=== PATIENT | female | born 1985 ===

== ENCOUNTER → 2020-06-20 12:47 | Outpatient (BNVA) | payer MEDICAID, SELFPAY | PROVIDERS: PCP Student in an Organized Health Care Education/Training Program; Visit Provider Internal Medicine Gastroenterology ==

== ENCOUNTER → 2020-09-22 10:01 | Outpatient (BNVA) | payer MEDICAID, SELFPAY | PROVIDERS: PCP Student in an Organized Health Care Education/Training Program; Visit Provider Internal Medicine Gastroenterology ==

== ENCOUNTER 2020-11-30 09:08 | Outpatient (REF) | payer MEDICAID, SELFPAY ==
--- NOTE | ~2020-11-30 | CT_ITS ---
EXAMINATION: CT SOFT TISSUE NECK WITH CONTRAST CLINICAL INFORMATION: Right-sided hardness and swelling. COMPARISON: None TECHNIQUE: Following the intravenous administration of 100 mL of Omnipaque 350 intravenous contrast, helical imaging was performed in the axial plane with generation of coronal and sagittal reformatted images. This CT examination was performed using dose optimization techniques as appropriate, variously including the following: *Automated exposure control *Adjustment of mA and/or kV according to patient size (this includes techniques or standardized protocols for targeted exams where dose is matched to indication/reason for exam; i.e. extremities or head) *Use of iterative reconstruction technique DLP: 272 mGy-cm FINDINGS: There is bilateral anterior neck lymphadenopathy. The largest right level 2 lymph node measures 2.1 x 1.6 cm. The largest left level 2 neck lymph node measures 1.6 x 1.3 cm. The parotid glands are homogeneous in attenuation. The submandibular glands are normal. There is moderate enlargement of adenoids and bilateral palatine tonsils. This results in complete narrowing of pharyngeal airway. The oral cavity is limited evaluation secondary to dental amalgam related artifacts. The laryngeal structures are normal. The parapharyngeal fat is preserved. The carotid sheath vasculature opacify normally. No extra mucosal soft tissue mass or fluid collection is seen. No retropharyngeal fluid collection is seen. The thyroid gland is normal. The superior mediastinum is unremarkable. The lung apices are clear. Incidental augmented right breast is noted. The mastoid air cells and visualized portions of the paranasal sinuses are well-aerated. The temporomandibular joints are normal. No periapical disease is identified. No osseous abnormalities are seen. The imaged portions of the brain parenchyma are unremarkable. CT/CT soft tissue neck w con IMPRESSION: Significantly enlarged adenoids and palatine tonsils resulting in significant narrowing of the thyroid gland. Bilateral abnormal cervical adenopathy.
[2020-11-30] MEDS: iohexoL 350 MG/ML 100 ML INFUS..BTL 60 ML IV (10:22)
== END 2020-11-30 09:09 | disposition home or self-care (01) ==
LOC: HO.CT 09:08
PROVIDERS: PCP Student in an Organized Health Care Education/Training Program; Referring Provider Student in an Organized Health Care Education/Training Program; Visit Provider Emergency Medicine
DX: J02.9 Acute pharyngitis, unspecified (principal); R22.1 Localized swelling, mass and lump, neck
CPT/HCPCS: 70491; Q9967

== ENCOUNTER → 2021-05-11 10:25 | Outpatient (BNVA) | payer MEDICAID, SELFPAY | PROVIDERS: PCP Student in an Organized Health Care Education/Training Program; Visit Provider Internal Medicine Gastroenterology | DX: Z13.89 Encounter for screening for other disorder (principal) | CPT/HCPCS: 99212 ==

== ENCOUNTER 2021-07-24 10:14 | Day surgery (SDC) | payer MEDICAID, SELFPAY ==
[2021-07-19 10:40] VITALS: BMI 28.3
[2021-07-24 10:34] LABS: UPreg QC Valid YES
[2021-07-24 10:35] LABS: Urine Pregnancy NEGATIVE (NEGATIVE)
[2021-07-24 10:51] VITALS: BMI 28.3
[2021-07-24 11:04] VITALS: BP 109/53; PULSE 58; RESP 16; TEMP 36.8; O2SAT 99
--- NOTE | 2021-07-24 11:24 | MHC.SHP ---
Pre-Procedural Eval Section A Date of Service: 07/24/21 The patient is an INPATIENT: No The History & Physical has been completed within 30 days and I have reviewed it.: No Section B Chief Complaint: GERD, abdominal pain Details of Present Illness: GERD, abdominal pain Relevant Family History (Specify if Yes): No Relevant Social History: Tobacco Use Present Medications: see Short Stay Collaborative assessment Medical History: Significant History (History of Helicobacter pylori infection) History of Previous Operations: Relevant previous surgery/procedure and date(s) (History of esophagogastroduodenoscopy (~11/2011) History of esophagogastroduodenoscopy (~10/2017) Hx laparoscopic cholecystectomy (~01/2018) Status post [place] teeth removed) Allergies: Allergies Allergy/AdvReac Type Severity Reaction Status Date / Time No Known Allergies Allergy Verified 05/11/21 10:27 [No Known Allergies*] Review of Systems Sugical H&P ROS: Negative: Constitution, Cardiovascular and Respiratory and Yes, Specify: Gastrointestinal (GERD, abdominal pain) Exam Surgical H&P Exam: Normal: Heart, Normal: Lungs and Normal: Abdomen Plan Diagnosis/Plan: Unchanged I have reviewed the history and physical and performed a pertinent physical examination on my patient. No changes have occurred unless specified.
--- NOTE | 2021-07-24 11:25 | PM.OP ---
Brief Operative Note Date of Service: 07/24/21 Pre-op diagnosis: GERD, upper abdominal pain Post-op diagnosis: other (GERD, gastritis) Procedure: FLEXIBLE TRANSORAL UPPER GASTROINTESTINAL ENDOSCOPY WITH BIOPSIES Consent: Indications for the procedure and potential complications of bleeding, perforation, reaction to medications and missed diagnosis were discussed with the patient with the help of a Malay foreign language instructor and informed consent was obtained. Instrument: Olympus GIF H 190 mid size upper endoscope Monitoring: Vital signs and clinical assessment, continuous EKG monitoring, Pulse oximetry, Carbon Dioxide monitoring and blood pressure monitoring were done throughout the procedure. Procedure: The patient was placed in the left lateral decubitis position and pre-procedure medications were administered and a bite block was placed. The endoscope was inserted into the mouth and advanced under direct vision to the third part of duodenum. A careful inspection was made as the upper endoscope was withdrawn including a retroflexed examination of the proximal stomach; Findings and interventions are described below. Findings: Larynx: Edema of arytenoid cartilages suggestive of LPRD Esophagus: GE junction at 35 cms. No esophagitis or Mckenzie's. Stomach: Mild diffuse gastric erythema. Biopsies were obtained from the antrum and body of the stomach. Grade 2 flap valve on retroflexed examination of the cardia. Duodenum: Normal bulb and descending duodenum. Biopsies were obtained from 3rd part of the duodenum to check for celiac sprue Intervention: Biopsies as noted above Impression and Post Procedure Diagnosis: Endoscopy Findings: LARYNX: Edema of arytenoid cartilages suggestive of LPRD ESOPHAGUS: Normal STOMACH: Mild diffuse gastric erythema. Biopsies were obtained from the antrum and body of the stomach. DUODENUM: Normal - biopsied to check for celiac sprue Plan: Await pathology results Patient has an appointment on 10/05/21 in the GI Clinic with Juan Tan M.D.. Above findings were reviewed with the patient and GERD and Diet for Gastritis handouts were given in the discharge area Surgeon: Juan Tan MD Anesthesia: MAC (Dr Guerrero) Was an Meteorology Faculty Member used for this Procedure?: Yes Meteorology Faculty Member: Capri Dawn Estimated blood loss (mL): 0 Pathology: other (A. small bowel bxs, R/O celiac B. gastric antrum bxs, R/O H. pylori C. gastric body bxs) Condition: stable Disposition: PACU
--- NOTE | 2021-07-24 11:26 | P.OP_ITS ---
Operative Note Operative Note Date of Service: 07/24/21 Narrative: Pre-op diagnosis: GERD, upper abdominal pain Post-op diagnosis:?other (GERD, gastritis) Procedure: FLEXIBLE TRANSORAL UPPER GASTROINTESTINAL ENDOSCOPY WITH BIOPSIES Consent:?Indications for the procedure and potential complications of bleeding, perforation, reaction to medications and missed diagnosis were discussed with the patient with the help of a Turkmen medical language specialist and informed consent was obtained. Instrument:?Olympus GIF H 190 mid size upper endoscope Monitoring: Vital signs and clinical assessment, continuous EKG monitoring, Pulse oximetry, Carbon Dioxide monitoring and blood pressure monitoring were done throughout the procedure. Procedure:?The patient was placed in the left lateral decubitis position and pre-procedure medications were administered and a bite block was placed. The endoscope was inserted into the mouth and advanced under direct vision to the third part of duodenum. A careful inspection was made as the upper endoscope was withdrawn including a retroflexed examination of the proximal stomach; Findings and interventions are described below. Findings: Larynx:? Edema of arytenoid cartilages suggestive of LPRD Esophagus: GE junction at 35 cms. No esophagitis or Mckenzie's. Stomach: Mild diffuse gastric erythema. Biopsies were obtained from the antrum and body of the stomach. Grade 2 flap valve on retroflexed examination of the cardia. Duodenum: Normal bulb and descending duodenum.? Biopsies were obtained from 3rd part of the duodenum to check for celiac sprue Intervention: Biopsies as noted above Impression and Post Procedure Diagnosis: Endoscopy Findings: LARYNX: Edema of arytenoid cartilages suggestive of LPRD ESOPHAGUS: Normal STOMACH: Mild diffuse gastric erythema. Biopsies were obtained from the antrum and body of the stomach. DUODENUM: Normal - biopsied to check for celiac sprue Plan: Await pathology results Patient has an appointment on 10/05/21 in the GI Clinic with Juan Tan M.D. Above findings were reviewed with the patient and GERD and Diet for Gastritis handouts were given in the discharge area ADDENDUM: Biopsies showed: A.? Small bowel, biopsy:? Small bowel mucosa within normal limits; preserved villous architecture and no increased intraepithelial lymphocytes seen.? B.? Stomach, antrum, biopsy:? Gastric antral mucosa within normal limits; negative for Helicobacter pylori, intestinal metaplasia and dysplasia.? C.? Stomach, body, biopsy:? Gastric body mucosa within normal limits; negative for Helicobacter pylori, intestinal metaplasia and dysplasia. Surgeon: Juan Tan MD Anesthesia:?MAC (Dr Guerrero) Was an Sponge Fisherman used for this Procedure?:?Yes Sponge Fisherman:?Capri Dawn Estimated blood loss (mL):?0 Pathology:?other (A. small bowel bxs, R/O celiac? B. gastric antrum bxs, R/O H. pylori? C. gastric body bxs) Condition:?stable Disposition:?PACU
[2021-07-24 11:41] VITALS: BP 87/45; PULSE 86; RESP 16; TEMP 36.4; O2SAT 98
[2021-07-24 11:56] VITALS: BP 88/51; PULSE 55; RESP 18; O2SAT 100
[2021-07-24 12:12] VITALS: BP 104/60; PULSE 69; RESP 16; TEMP 36.4; O2SAT 100
[2021-07-24 12:22] VITALS: BP 102/52; PULSE 60; RESP 16; TEMP 36.4; O2SAT 100
== END 2021-07-24 13:40 | disposition home or self-care (01) ==
PROVIDERS: Anesthesiology; PCP Student in an Organized Health Care Education/Training Program; Visit Provider Internal Medicine Gastroenterology
PROC: 0DJ08ZZ Inspection of Upper Intestinal Tract, Via Natural or Artificial Opening Endoscopic (ICD-10-PCS; CPT 43235; principal; 2021-07-24 11:40)
DX: K21.9 Gastro-esophageal reflux disease without esophagitis (principal); K29.70 Gastritis, unspecified, without bleeding; E55.9 Vitamin D deficiency, unspecified; Z87.19 Personal history of other diseases of the digestive system; Z79.899 Other long term (current) drug therapy; Z90.49 Acquired absence of other specified parts of digestive tract
CPT/HCPCS: 43239; 81025; 88305; 88342

== ENCOUNTER → 2021-10-05 08:10 | Outpatient (BNVA) | payer MEDICAID, SELFPAY | PROVIDERS: PCP Student in an Organized Health Care Education/Training Program; Visit Provider Internal Medicine Gastroenterology | DX: K21.9 Gastro-esophageal reflux disease without esophagitis (principal); R10.13 Epigastric pain; E55.9 Vitamin D deficiency, unspecified; D13.5 Benign neoplasm of extrahepatic bile ducts; R10.9 Unspecified abdominal pain; G89.29 Other chronic pain | CPT/HCPCS: 99212 ==

== ENCOUNTER 2022-01-18 13:55 | Outpatient (REF) | payer MEDICAID, SELFPAY ==
[2022-01-18 14:11] LABS: MANUAL DIFF FLAG NO
[2022-01-18 15:09] LABS: Basophils Absolute Auto 0.1 X10*3/uL (0.0-0.2); Basophils Percent Auto 0.5 % (0-2); Eosinophils Absolute Auto 0.1 X10*3/uL (0.0-0.4); Eosinophils Percent Auto 0.7 % (0-4); Hematocrit 42.5 % (37.0-47.0); Hemoglobin 14.2 g/dl (12.0-16.0); Imm Gran Abs Auto 0.04 X10*3/uL (0.00-0.03); Imm Gran Pct Auto 0.4 % (0.0-0.4); Lymphocytes Absolute Auto 2.9 X10*3/uL (1.2-4.9); Lymphocytes Percent Auto 26.2 % (20-40); Mean Corpuscular HGB Conc 33.4 g/dl (31.0-35.0); Mean Corpuscular Hemoglobin 27.8 pg (27.0-33.0); Mean Corpuscular Volume 83.3 fL (80.0-98.0); Mean Platelet Volume 11.3 fL (9.4-12.3); Monocytes Absolute Auto 0.5 X10*3/uL (0.1-1.2); Monocytes Percent Auto 4.9 % (2-11); Neutrophils Absolute Auto 7.4 x10*3/uL (2.0-8.3); Neutrophils Percent Auto 67.3 % (45-73); Platelet Count 267 X10*3/uL (160-400); Red Cell Distribution Width 13.1 % (11.0-16.0)
[2022-01-18 15:41] LABS: Alanine Aminotransferase 11 U/L (0-31); Albumin Level 4.3 g/dL (3.5-5.0); Alkaline Phosphatase 56 U/L (39-117); Anion Gap 17 (12-20); Aspartate Amino Transferase 14 U/L (5-31); Bilirubin Total 0.3 mg/dL (0.0-1.0); Blood Urea Nitrogen 11 mg/dL (9-16); Calcium 9.6 mg/dL (8.4-10.2); Carbon Dioxide 25 mmol/L (22-29); Chloride 105 mmol/L (96-108); Estimated Glomerular Filt Rate > 60; Glucose Random 80 mg/dL (60-115); Lipase 33 U/L (8-78); Potassium 4.5 mmol/L (3.3-5.1); Sodium 142 mmol/L (135-145); Total Protein 7.2 g/dL (6.5-8.0)
[2022-01-18 16:00] LABS: Vitamin D 25-OH Total 26.8 ng/mL (>30)
[2022-01-18 16:11] LABS: Folate 9.1 ng/mL (> or = 4.0); Vitamin B12 445 pg/mL (200-900)
== END 2022-01-18 13:56 | disposition home or self-care (01) ==
LOC: HO.LAB 13:55
PROVIDERS: PCP Student in an Organized Health Care Education/Training Program; Visit Provider Internal Medicine Gastroenterology
DX: R10.9 Unspecified abdominal pain (principal); G89.29 Other chronic pain; K21.9 Gastro-esophageal reflux disease without esophagitis; R10.13 Epigastric pain; D13.5 Benign neoplasm of extrahepatic bile ducts
CPT/HCPCS: 36415; 80053; 82306; 82607; 82746; 83690; 85025; 99212

== ENCOUNTER 2022-01-31 07:32 | Outpatient (REF) | payer MEDICAID, SELFPAY ==
--- NOTE | ~2022-01-31 | CT_ITS ---
EXAMINATION: CT ABDOMEN AND PELVIS WITH CONTRAST CLINICAL INFORMATION: Abdominal pain. COMPARISON: Ultrasound abdomen 12/10/2017. TECHNIQUE: Multidetector volumetric images were obtained from the superior aspect of the liver through the pubic symphysis following administration 85 mL of Omnipaque 350 intravenous contrast. Sagittal and coronal reformatted images were obtained on the technologist's workstation. Oral contrast: No This CT examination was performed using dose optimization techniques as appropriate, variously including the following: *Automated exposure control *Adjustment of mA and/or kV according to patient size (this includes techniques or standardized protocols for targeted exams where dose is matched to indication/reason for exam; i.e. extremities or head) *Use of iterative reconstruction technique DLP: 390 mGy-cm FINDINGS: LUNG BASES: The lung bases are clear. Heart size is normal. LIVER, GALLBLADDER, AND BILIARY TREE: The liver is normal in size, shape, and attenuation. No focal hepatic lesion or biliary ductal dilatation is present. The gallbladder has been surgically removed. PANCREAS: Unremarkable. SPLEEN: Unremarkable. ADRENAL GLANDS: Unremarkable. KIDNEYS AND URETERS: The kidneys are normal size, lobulated shape, and attenuation. No hydronephrosis, hydroureter, or calculi seen. No perinephric stranding. BLADDER: Unremarkable. GASTROINTESTINAL TRACT: There is scattered stool and gas seen throughout the colon without significant distention. The small bowel loops are normal caliber. ABDOMINAL WALL: No significant hernia is appreciated. LYMPH NODES: Normal. VASCULAR: Unremarkable. PELVIC VISCERA: The uterus is anteverted and appears unremarkable. No adnexal mass or free fluid seen. OSSEOUS STRUCTURES: Unremarkable. CT/CT abdomen pelvis w IV con IMPRESSION: No acute intra-abdominal process seen. Mild constipation. Fleischner guidelines were followed.
[2022-01-31] MEDS: Barium Sulfate Oral (Vanilla) 450 ML ORAL.SUSP 900 ML PO (09:49)
[2022-01-31] MEDS: iohexoL 350 MG/ML 100 ML INFUS..BTL IV (09:50)
== END 2022-01-31 07:33 | disposition home or self-care (01) ==
LOC: HO.CT 07:32
PROVIDERS: PCP Student in an Organized Health Care Education/Training Program; Visit Provider Internal Medicine Gastroenterology
DX: R10.9 Unspecified abdominal pain (principal); G89.29 Other chronic pain
CPT/HCPCS: 74177; Q9967

== ENCOUNTER → 2022-05-17 08:17 | Outpatient (BNVA) | payer MEDICAID, SELFPAY | PROVIDERS: PCP Student in an Organized Health Care Education/Training Program; Visit Provider Internal Medicine Gastroenterology | DX: Z13.89 Encounter for screening for other disorder (principal) ==

== ENCOUNTER 2022-05-31 14:01 | Outpatient (REF) | payer MEDICAID, SELFPAY ==
--- NOTE | 2022-05-31 09:15 | EMG_ITS ---
Bilateral median and ulnar motor and sensory studies were performed. Bilateral radial, medial, and lateral, antecubital sensory studies were performed and paraspinal muscles were tested with a needle. IMPRESSION: This study was unremarkable, not revealing any sign of entrapment neuropathy, radiculopathy or plexopathy. MD LINDA Meyer/ROSETTE / [id number]
== END 2022-05-31 14:02 | disposition home or self-care (01) ==
LOC: HO.NEURO 14:01
PROVIDERS: PCP Student in an Organized Health Care Education/Training Program; Visit Provider Student in an Organized Health Care Education/Training Program
DX: G56.03 Carpal tunnel syndrome, bilateral upper limbs (principal)
CPT/HCPCS: 95886; 95913

== ENCOUNTER → 2022-10-02 10:29 | Outpatient (BNVA) | payer MEDICAID, SELFPAY | PROVIDERS: PCP Student in an Organized Health Care Education/Training Program; Referring Provider Student in an Organized Health Care Education/Training Program; Visit Provider Internal Medicine Gastroenterology | DX: K59.09 Other constipation (principal); K21.9 Gastro-esophageal reflux disease without esophagitis; R10.9 Unspecified abdominal pain; R10.13 Epigastric pain; D13.5 Benign neoplasm of extrahepatic bile ducts; G89.29 Other chronic pain | CPT/HCPCS: 99212 ==

== ENCOUNTER 2023-04-04 10:31 | Outpatient (AMB) | payer MEDICAID, SELFPAY ==
--- NOTE | 2023-04-04 10:36 | A.OFFVIS_ITS ---
Intake Vital Signs 04/04/23 10:38 Height 5 ft 1 in Weight 158 lb BMI 29.9 BP 84/58 L Blood Pressure Location Lt brachial Position Sitting Pulse 72 Intake Visit Reasons: 6 month follow up Intake Note: Patient follow up for adenomyomatosis of gallbladder. Patient cc: acid reflex come and go. Denies any other GI issues. Cotton Classer Required: No Accompanied by: Self / Same As Patient Allergies No Known Allergies [No Known Allergies*] Allergy (Verified 04/04/23 10:35) Medication List - Last Reconciled 04/04/23 by Juan Tan MD cholecalciferol (vitamin D3) 250 mcg PO QWEEK 90 days ibuprofen 800 mg PO TID naproxen 250 mg PO BID PRN omeprazole 20 mg PO BID 60 days sennosides (senna) 8.6 mg PO BEDTIME 30 days sucralfate (Carafate) 10 mL PO BID 30 days HPI 6 month follow up HPI Details GI VISIT FOR THIS 37-YEAR-OLD UKRAINIAN-SPEAKING FEMALE FOR FOLLOW-UP OF GERD AND EPIGASTRIC PAIN Patient is status post cholecystectomy in 2018 ? ?? CHRONIC ILLNESSES:?H pylori 11/2011; Neg Ag 08/2015, INSOMNIA, VITAMIN-D DEFICIENCY, SMOKER IMAGING STUDIES: 02/[address] SHOWED: GASTROINTESTINAL TRACT: There is scattered stool and gas seen throughout the colon without significant distention. The small bowel loops are normal caliber.? PELVIC VISCERA: The uterus is anteverted and appears unremarkable. No adnexal mass or free fluid seen. IMPRESSION: No acute intra-abdominal process seen. Mild constipation. ? 12/04 ABDOMINAL ULTRASOUND SHOWED: Ring down artifact from the gallbladder wall suggestive of adenomyomatosis of the gallbladder wall. Otherwise unremarkable exam. Patient is status post cholecystectomy in 2018 ? ENDOSCOPIC STUDIES: 07/24/21 EGD SHOWED: LARYNX: Edema of arytenoid cartilages suggestive of LPRD ESOPHAGUS: Normal STOMACH: Mild diffuse gastric erythema. Biopsies were obtained from the antrum and body of the stomach. DUODENUM: Normal - biopsied to check for celiac sprue Plan:? Above findings were reviewed with the patient and GERD and Diet for Gastritis handouts were given in the discharge area BIOPSIES SHOWED: A.? Small bowel, biopsy:? Small bowel mucosa within normal limits; preserved villous architecture and no increased intraepithelial lymphocytes seen.? B.? Stomach, antrum, biopsy:? Gastric antral mucosa within normal limits; negative for Helicobacter pylori, intestinal metaplasia and dysplasia.? C.? Stomach, body, biopsy:? Gastric body mucosa within normal limits; negative for Helicobacter pylori, intestinal metaplasia and dysplasia. EGD on 11/04/17 showed: ? Larynx: Edema of arytenoid cartilages ? Esophagus: Minimal esophagitis at GE junction. Biopsies obtained from the proximal esophagus. ? Stomach: Mild diffuse erythema involving the entire stomach - antral biopsies obtained ? Duodenum: Normal. ? Biopsies: ? A. UNREMARKABLE GASTRIC ANTRAL-TYPE MUCOSA. AN IMMUNOSTAIN FOR HELICOBACTER PYLORI IS NEGATIVE. ? B. UNREMARKABLE ESOPHAGEAL SQUAMOUS MUCOSA. THERE IS NO EVIDENCE OF EOSINOPHILIC ESOPHAGITIS ?TODAY'S VISIT ? Pt elected to proceed with the visit without an iron miner blasting since she does not have any GI concerns today Heartburn well controlled with Omeprazole with occasional breakthrough symptoms associated with diet Abd pain resolved since GB surgery Denies constipation Having Thanksgiving at her home Dad and brother are planning to visit from [place] over Xmas PAST VISIT: I do not have any concerns ? Taking Omeprazole 20 mg twice a day and Carafate 2-3 times daily with meals. ? Heartburn is well controlled with above medications ? Takes Naproxen intermittently for CTS - 1-2 times a week Abd CT scan results reviewed. ? Has noted constipation recently and has a BM every 3 to 4 days ? Continues to have upper abdominal pain in her stomach with burning sensation. ? from time to time and medication has helped a lot. ? Denies dysphagia. ? Medications are helping with her GERD. Denies any other GI symptoms. ? Doing good and heartburn is better. ? Scheduled for a 2nd dose of COVID vaccine next week. ? Patient was prescribed pantoprazole after a previous visit, she notes better relief of symptoms with omeprazole and was switched back to Omeprazole. ? She was started on Famotidine and does not notice any change in heartburn. ? Has been taking Omeprazole for the past several yrs. ? Does not recall taking Pantoprazole in the past. ? Had a physical with her PCP and had lab tests done which were normal. ? Has constant heartburn which does not go away. ?Taking Omeprazole twice daily which is helpful. ? Has been taking Carafate which has not been very helpful ? Sometimes the medication helps and sometimes it does not. ? Notes pain in the pit of her stomach. ? Unable to identify any precipitating factors. ? Can have abdominal pain before eating. ? Symptoms are worse at night. ? Appetite is good and denies any change in weight. ? Takes Omperazole twice a day after meals - one in the morning and once at night - advised to take 20 to 30 min before meals. Also take Carafate twice a day. ? Has dinner at 5 pm and goes to sleep at 10 pm. Sleeps almost upright with several pillows and can still have nocturnal regurgitation. ? She usually notes Epigastric pain an hour after eating. Pain improves with taking Maalox. Notes intermittent nausea with abdominal pain and denies chest pain, dysphagia bloating, gas, constipation or?diarrhea. She takes ETOH occasionally and stopped drinking sodas. ? Weight has been?stale [facility] Medical History COVID-19 vaccine series completed Helicobacter pylori infection (~11/2011) Surgical History Hx laparoscopic cholecystectomy (~01/2018) Status post [place] teeth removed History of esophagogastroduodenoscopy (~11/2011) Family History Mother HTN (hypertension) Social History Household Members: None Alcohol intake: current Alcohol intake frequency: holidays/special occasions only Patient Tobacco Use Status: Tobacco use Unknown Review of Systems Const All systems reviewed & are unremarkable except as noted in HPI and below Physical Exam Const General: healthy appearing and no acute distress Nutritional Appearance: overweight Orientation/consciousness: patient oriented x3 Limitations: no limitations HEENT Head: Yes normal to inspection Ears: hearing grossly normal bilaterally Eyes Sclerae: sclerae normal Pupils: Equal, round and reactive pupils present Neck Neck: Yes normal visual inspection Chest Chest palpation & inspection: normal inspection of the chest Resp Effort & Inspection: normal respiratory effort Auscultation: clear to auscultation bilaterally Cardio Palpation: normal PMI Rate: regular rate Rhythm: regular rhythm Heart sounds: S1 normal heart sound present, S2 normal heart sound present and no murmurs GI Palpation (GI): Soft to palpation, nontender and No hepatosplenomegaly present Auscultation: normal bowel sounds Rectal Exam - Female: deferred Skin General skin exam: no rashes or lesions noted Neuro General: patient oriented x3, gait normal and moves all extremities Cranial nerves: Yes Equal, round and reactive pupils present Psych Appearance: grossly normal Mental Status: mental status grossly normal Assessment & Plan Assessment & Plan (1) Chronic constipation: Code(s): K59.09 - Other constipation (2) Chronic abdominal pain: Code(s): R10.9 - Unspecified abdominal pain; G89.29 - Other chronic pain (3) GERD (gastroesophageal reflux disease): Comment: Continue omeprazole twice daily and Carafate 2-3 times daily. Code(s): K21.9 - Gastro-esophageal reflux disease without esophagitis (4) Adenomyomatosis of gallbladder: Comment: status post cholecystectomy Code(s): D13.5 - Benign neoplasm of extrahepatic bile ducts Plan 37 year old Korean-speaking female with history of smoking and long standing symptoms with heartburn and nocturnal regurgitation every night. Her symptoms have improved since she increased dose of Omeprazole to 40 mg twice daily. Use of NSAIDS and smoking and recent weight gain are likely contributing to worsening GERD symptoms. 10/2017 EGD showed diffuse gastritis and minimal esophagitis at GE junction. Biopsies were negative for EOE and H Pylori. Patient was prescribed pantoprazole after her last visit, she noted better relief of symptoms with omeprazole and was switched back to Omeprazole. 07/2021 Repeat EGD was performed and results as noted above. 01/[address] scan was negative except for constipation. Pt was prescribed senna for constipation - takes prn 04/04/23 GERD symptoms are well controlled with medications To continue Omeprazole 20 mg twice daily and sucralfate prn . FU in 6 months Medications: Refilled cholecalciferol (vitamin D3) 250 mcg PO QWEEK 90 days 13 caps 1RF E55.9 - Vitamin D deficiency, unspecified Coding Level of Care Code Est Pt Level 4 (28549) Diagnoses Chronic constipation K59.09 Chronic abdominal pain R10.9; G89.29 GERD (gastroesophageal reflux disease) K21.9 Adenomyomatosis of gallbladder D13.5 Time Spent (min) 21
[2023-04-04 10:38] VITALS: BP 84/58; PULSE 72; BMI 29.9
== END 2023-04-04 10:57 | disposition home or self-care (01) ==
PROVIDERS: PCP Student in an Organized Health Care Education/Training Program; Visit Provider Internal Medicine Gastroenterology
DX: K59.09 Other constipation (principal); R10.9 Unspecified abdominal pain; G89.29 Other chronic pain; K21.9 Gastro-esophageal reflux disease without esophagitis; D13.5 Benign neoplasm of extrahepatic bile ducts
CPT/HCPCS: 99214

== ENCOUNTER → 2023-04-04 10:31 | Outpatient (BNVA) | payer MEDICAID, SELFPAY | PROVIDERS: Visit Provider Internal Medicine Gastroenterology | DX: K59.09 Other constipation (principal); K21.9 Gastro-esophageal reflux disease without esophagitis; R10.9 Unspecified abdominal pain; D13.5 Benign neoplasm of extrahepatic bile ducts; G89.29 Other chronic pain | CPT/HCPCS: 99212 ==

== ENCOUNTER 2023-10-21 13:11 | Outpatient (AMB) | payer MEDICAID, SELFPAY ==
[2023-10-21 13:15] VITALS: BP 94/47; PULSE 62; BMI 30.6
--- NOTE | 2023-10-21 13:15 | MHC.OFFVIS ---
Vital Signs 10/21/23 13:15 Height 5 ft 1 in Weight 162 lb BMI 30.6 BP 94/47 L Blood Pressure Location Lt brachial Position Sitting Pulse 62 Intake Visit Reasons: follow up Cellar Packer Required: No Accompanied by: Self / Same As Patient Allergies No Known Allergies [No Known Allergies*] Allergy (Verified 10/21/23 13:14) Medication List - Last Reconciled 10/21/23 by Juan Tan MD cholecalciferol (vitamin D3) 250 mcg PO QWEEK 90 days ibuprofen 800 mg PO TID naproxen 250 mg PO BID PRN omeprazole 20 mg PO BID 90 days sennosides (senna) 8.6 mg PO BEDTIME sucralfate (Carafate) 10 mL PO BID 30 days HPI HPI follow up: Details: GI VISIT FOR THIS 38-YEAR-OLD BENINESE-SPEAKING FEMALE FOR FOLLOW-UP OF GERD AND EPIGASTRIC PAIN Patient is status post cholecystectomy in 2018 ? ?? CHRONIC ILLNESSES:?H pylori 11/2011; Neg Ag 08/2015, INSOMNIA, VITAMIN-D DEFICIENCY, SMOKER IMAGING STUDIES: 02/[address] SHOWED: GASTROINTESTINAL TRACT: There is scattered stool and gas seen throughout the colon without significant distention. The small bowel loops are normal caliber.? PELVIC VISCERA: The uterus is anteverted and appears unremarkable. No adnexal mass or free fluid seen. IMPRESSION: No acute intra-abdominal process seen. Mild constipation. ? 12/04 ABDOMINAL ULTRASOUND SHOWED: Ring down artifact from the gallbladder wall suggestive of adenomyomatosis of the gallbladder wall. Otherwise unremarkable exam. Patient is status post cholecystectomy in 2018 ? ENDOSCOPIC STUDIES: 07/24/21 EGD SHOWED: LARYNX: Edema of arytenoid cartilages suggestive of LPRD ESOPHAGUS: Normal STOMACH: Mild diffuse gastric erythema. Biopsies were obtained from the antrum and body of the stomach. DUODENUM: Normal - biopsied to check for celiac sprue Plan:? Above findings were reviewed with the patient and GERD and Diet for Gastritis handouts were given in the discharge area BIOPSIES SHOWED: A.? Small bowel, biopsy:? Small bowel mucosa within normal limits; preserved villous architecture and no increased intraepithelial lymphocytes seen.? B.? Stomach, antrum, biopsy:? Gastric antral mucosa within normal limits; negative for Helicobacter pylori, intestinal metaplasia and dysplasia.? C.? Stomach, body, biopsy:? Gastric body mucosa within normal limits; negative for Helicobacter pylori, intestinal metaplasia and dysplasia. EGD on 11/04/17 showed: ? Larynx: Edema of arytenoid cartilages ? Esophagus: Minimal esophagitis at GE junction. Biopsies obtained from the proximal esophagus. ? Stomach: Mild diffuse erythema involving the entire stomach - antral biopsies obtained ? Duodenum: Normal. ? Biopsies: ? A. UNREMARKABLE GASTRIC ANTRAL-TYPE MUCOSA. AN IMMUNOSTAIN FOR HELICOBACTER PYLORI IS NEGATIVE. ? B. UNREMARKABLE ESOPHAGEAL SQUAMOUS MUCOSA. THERE IS NO EVIDENCE OF EOSINOPHILIC ESOPHAGITIS ?TODAY'S VISIT ? Pt elected to proceed with the visit without an space operations officer since she does not have any GI concerns today Heartburn well controlled with Omeprazole with occasional breakthrough symptoms associated with diet Abd pain resolved since GB surgery Denies constipation Having Thanksgiving at her home Dad and brother are planning to visit from [place] over Xmas PAST VISIT: Everything is the same Taking Omeprazole 20 mg twice a day and sometimes Carafate 2-3 times daily with meals. ? Heartburn is well controlled with above medications ? Takes Naproxen or Ibuprofen intermittently for CTS - 1-2 times a week PAST VISITS: Abd CT scan results reviewed. ? Has noted constipation recently and has a BM every 3 to 4 days ? Continues to have upper abdominal pain in her stomach with burning sensation. ? from time to time and medication has helped a lot. ? Denies dysphagia. ? Medications are helping with her GERD. Denies any other GI symptoms. ? Doing good and heartburn is better. ? Scheduled for a 2nd dose of COVID vaccine next week. ? Patient was prescribed pantoprazole after a previous visit, she notes better relief of symptoms with omeprazole and was switched back to Omeprazole. ? She was started on Famotidine and does not notice any change in heartburn. ? Has been taking Omeprazole for the past several yrs. ? Does not recall taking Pantoprazole in the past. ? Had a physical with her PCP and had lab tests done which were normal. ? Has constant heartburn which does not go away. ?Taking Omeprazole twice daily which is helpful. ? Has been taking Carafate which has not been very helpful ? Sometimes the medication helps and sometimes it does not. ? Notes pain in the pit of her stomach. ? Unable to identify any precipitating factors. ? Can have abdominal pain before eating. ? Symptoms are worse at night. ? Appetite is good and denies any change in weight. ? Takes Omperazole twice a day after meals - one in the morning and once at night - advised to take 20 to 30 min before meals. Also take Carafate twice a day. ? Has dinner at 5 pm and goes to sleep at 10 pm. Sleeps almost upright with several pillows and can still have nocturnal regurgitation. ? She usually notes Epigastric pain an hour after eating. Pain improves with taking Maalox. Notes intermittent nausea with abdominal pain and denies chest pain, dysphagia bloating, gas, constipation or?diarrhea. She takes ETOH occasionally and stopped drinking sodas. ? Weight has been?stable [facility] Medical History COVID-19 vaccine series completed Helicobacter pylori infection (~11/2011) Surgical History Hx laparoscopic cholecystectomy (~01/2018) Status post [employer] teeth removed History of esophagogastroduodenoscopy (~11/2011) Family History Mother HTN (hypertension) Social History Household Members: None Alcohol intake: current Alcohol intake frequency: holidays/special occasions only Patient Tobacco Use Status: Tobacco use Unknown Review of Systems Const All systems reviewed & are unremarkable except as noted in HPI and below Physical Exam Const General: healthy appearing and no acute distress Nutritional Appearance: overweight Orientation/consciousness: patient oriented x3 Limitations: no limitations HEENT Head: Yes normal to inspection Ears: hearing grossly normal bilaterally Eyes Sclerae: sclerae normal Pupils: Equal, round and reactive pupils present Neck Neck: Yes normal visual inspection Chest Chest palpation & inspection: normal inspection of the chest Resp Effort & Inspection: normal respiratory effort Auscultation: clear to auscultation bilaterally Cardio Palpation: normal PMI Rate: regular rate Rhythm: regular rhythm Heart sounds: S1 normal heart sound present, S2 normal heart sound present and no murmurs GI Palpation (GI): Soft to palpation, nontender and No hepatosplenomegaly present Auscultation: normal bowel sounds Rectal Exam - Female: deferred Skin General skin exam: no rashes or lesions noted Neuro General: patient oriented x3, gait normal and moves all extremities Cranial nerves: Yes Equal, round and reactive pupils present Psych Appearance: grossly normal Mental Status: mental status grossly normal Assessment & Plan Assessment & Plan (1) GERD (gastroesophageal reflux disease): Comment: Continue omeprazole twice daily and Carafate 2-3 times daily. Code(s): K21.9 - Gastro-esophageal reflux disease without esophagitis Category: Medical (2) Vitamin D deficiency: Code(s): E55.9 - Vitamin D deficiency, unspecified Category: Medical (3) Chronic abdominal pain: Code(s): R10.9 - Unspecified abdominal pain; G89.29 - Other chronic pain Category: Medical (4) Chronic constipation: Code(s): K59.09 - Other constipation Category: Medical Plan 38 year old Kiswahili-speaking female with history of smoking and long standing symptoms with heartburn and nocturnal regurgitation every night. Her symptoms have improved since she increased dose of Omeprazole to 40 mg twice daily. Use of NSAIDS and smoking and recent weight gain are likely contributing to worsening GERD symptoms. 10/2017 EGD showed diffuse gastritis and minimal esophagitis at GE junction. Biopsies were negative for EOE and H Pylori. Patient was prescribed pantoprazole after her last visit, she noted better relief of symptoms with omeprazole and was switched back to Omeprazole. 07/2021 Repeat EGD was performed and results as noted above. 01/[address] scan was negative except for constipation. Pt was prescribed senna for constipation - takes prn 10/21/23 GERD symptoms are well controlled with medications To continue Omeprazole 20 mg twice daily and sucralfate prn . FU in 8 month Orders: Orders Vitamin B12 Today K21.9 - Gastro-esophageal reflux disease without esophagitis Vitamin D 25-OH Total Today K21.9 - Gastro-esophageal reflux disease without esophagitis Complete Blood Count Auto Diff Today K21.9 - Gastro-esophageal reflux disease without esophagitis Comprehensive Met. Panel Today K21.9 - Gastro-esophageal reflux disease without esophagitis Coding Level of Care Code Est Pt Level 3 (38582) Diagnoses GERD (gastroesophageal reflux disease) K21.9 Vitamin D deficiency E55.9 Chronic abdominal pain R10.9; G89.29 Chronic constipation K59.09 Time Spent (min) 18
== END 2023-10-21 13:33 | disposition home or self-care (01) ==
PROVIDERS: PCP Student in an Organized Health Care Education/Training Program; Referring Provider Student in an Organized Health Care Education/Training Program; Visit Provider Internal Medicine Gastroenterology
DX: K21.9 Gastro-esophageal reflux disease without esophagitis (principal); E55.9 Vitamin D deficiency, unspecified; R10.9 Unspecified abdominal pain; G89.29 Other chronic pain; K59.09 Other constipation
CPT/HCPCS: 99213

== ENCOUNTER → 2023-10-21 13:11 | Outpatient (BNVA) | payer MEDICAID, SELFPAY | PROVIDERS: PCP Student in an Organized Health Care Education/Training Program; Visit Provider Internal Medicine Gastroenterology | DX: K21.9 Gastro-esophageal reflux disease without esophagitis (principal); K59.09 Other constipation; R10.13 Epigastric pain; G89.29 Other chronic pain; E55.9 Vitamin D deficiency, unspecified; Z90.49 Acquired absence of other specified parts of digestive tract | CPT/HCPCS: 99212 ==

== ENCOUNTER 2024-06-25 10:38 | Outpatient (REF) | payer MEDICAID, SELFPAY ==
--- OUTSIDE RECORDS SUMMARY | 2024-06-25 11:48 | XMS_ITS | Encounter Summary ---
Author Organization [employer] Address [address] [place] [address] Care Team Providers Care Computer Forensic Examiner Name Role Phone Mabel Ortiz MD Primary Care Provider [phone] Reason for Visit * Reason Comments Abnormal Bleeding Encounter Details Date Type Department Care Team ([facility] st Contact Info) Description 06/24/2024 10:20 AM EST Office Visit Obstetrics and Gynecology - [facility] [address] [place] [address] Aurora Mcclellan PA [address] [place] [address] Abnormal uterine bleeding (AUB) (Primary Dx) Social [...] abdominal pain, N/V/D/C. Denies changes in appetite. MARKETING MGR: See HPI MUSCULOSKELETAL: Denies myalgias, arthralgias SKIN: [...] appropriate demeanor Pelvic: Exam chaperoned by medical consultant. Speculum used. External Genitalia: Normal architecture, without [...] in the dorsal lithotomy position with medical consultant present and speculum was inserted into the [...] EST Office Visit Obstetrics & Gynecology - [address] [phone] Vanessa Russell, PIPE [facility] [place] [address] 08/03/2024 1:30 PM EDT Office Visit Obstetrics & Gynecology - [address] [phone] Vanessa Russell, CNM [address] [place] [address] Pending Results Name Type Priority Associated Diagnoses Date /Time Tissue Exam Pathology and Cytology Routine Abnormal uterine bleeding (AUB) 06/24/2024 12:56 PM EST documented as of this encounter Procedures Procedure Name Priority Date/Time Associated Diagnosis Comments MN ENDOMETRIAL SAMPLING W/WO ENDOCERVICAL SAMPLING W/O CERVICAL DILATION Routine 06/24/2024 11:11 AM EST Abnormal uterine bleeding (AUB) documented in this encounter Results * MN ENDOMETRIAL SAMPLING W/WO ENDOCERVICAL SAMPLING W/O CERVICAL [...] 1 documented in this encounter Care Teams Computer Forensic Examiner Relationship Specialty Start Date End Date Mabel Ortiz MD [address] [place] [address] PCP - General 06/21/16 documented as of this encounter
--- OUTSIDE RECORDS SUMMARY | 2024-06-25 11:48 | XMS_ITS | Continuity of Care Document ---
Author Organization [facility] Address [address] [place] [address] [address] [place] [address] Phone Care Team Providers Care Road Freight Brake Coupler Name Role Phone Christel Fitch Unavailable Unavailable Procedures Procedure Date PT Did Not Receive Services Advance Directives Directive Yes / No Effective Date File Name No Information Encounters Encounter Description Practice Location Reason(s) For Visit Diagnoses Date Provider Providers Copied on Encounter [facility], [address] [place] [address] [address], [place], [id number], [place] tel:[phone] [facility] No Information [address] [place]. [address] [place] [address], [id number], . tel:[phone] Referring Provider: Christel Fitch, [address] [place] [address], [address] . tel:[phone] Family History Family Member Type Diagnosis Age At Onset No Information Payers Payer name Insurance type Covered constitution party ID Authoriza tion(s) No Information Social History [...]
--- OUTSIDE RECORDS SUMMARY | 2024-06-25 11:48 | XMS_ITS | Encounter Summary ---
Author Organization [employer] Address [address] [facility] 7t [place] [address] Care Team Providers Care Fire Sprinkler Inspector Name Role Phone Mabel Ortiz MD Primary Care Provider [phone] Encounter Details Date Type Department Care Team ([facility] st Contact Info) Description 12/02/2023 Orders Only [facility] CHC MED & PEDS [address] [place] [address] ProviderPamela MD Social History Tobacco Use Types [...] documented as of this encounter Care Teams Fire Sprinkler Inspector Relationship Specialty Start Date End Date Mabel Ortiz MD [address] [place] [address] PCP - General Family Medicine 05/27/13 documented as of this encounter
--- OUTSIDE RECORDS SUMMARY | 2024-06-25 11:48 | XMS_ITS | Encounter Summary ---
Author Organization [employer] Address [address] [facility] 7t [place] [address] Care Team Providers Care Pit Steward Name Role Phone Mabel Ortiz MD Primary Care Provider [phone] Reason for Visit * Reason Onset Date Comments Nurse Triage 05/11/2024 Encounter Details Date Type Department Care Team ([facility] st Contact Info) Description 05/11/2024 Telephone [facility] MEDICINE [address] [place] [address] Mabel Ortiz MD [address] [place] [address] Nurse Triage Social History Tobacco Use Types [...] 3:07 PM EST [place] [id number]. Pt reports abdominal pain which comes and [...] down. Pt is advised to come to [facility] today open till 800pm or tomorrow morning [...] The caller accepted this outcome. Please contact (Italian) documented in this encounter Plan of Treatment Not on file documented as of this encounter Visit Diagnoses Not on filedocumented in this encounter Additional Health Concerns Assessment Noted Time PHQ-9 Depression Total Score: 0 10/10/19 24 11:23 AM EDT documented as of this encounter Care Teams Pit Steward Relationship Specialty Start Date End Date Mabel Ortiz MD [address] [place] [address] PCP - General Family Medicine 05/27/13 documented as of this encounter
--- OUTSIDE RECORDS SUMMARY | 2024-06-25 11:49 | XMS_ITS | Continuity of Care Document ---
Author Organization [facility] Address [address] [place] [address] [address] [place] [address] Phone Care Team Providers Care Aerospace Control And Warning Systems Name Role Phone Neeraj BUSTILLOS FACS CARLT [...] Providers Copied on Encounter [facility], [address] [place] [address] [address], [place], [id number], [place] tel:[phone] [facility] [place] - [place] Spider Veins - (Telangiect noelle) 3 Neeraj BUSTILLOS FACS JUAN CARLOS Felix. [address] [address], [place], [address], [place]. tel:[phone] Referring Provider: Mabel Ortiz MD, [address], [address]. tel:[phone] [facility], [address] [place] [address] [address] [address], [id number], [place] tel:[phone] [facility] [place] [facility] [place] Spider Veins - (Telangiect noelle) 3 Katty Sanchez . [address] [facility], [address] [address], [place], [place], [id number] , [place]. tel:[phone] Referring Provider: Mabel Ortiz MD, [address], [place], [address]. tel:[phone] Family History Family Member Type Diagnosis Age [...]
--- OUTSIDE RECORDS SUMMARY | 2024-06-25 11:49 | XMS_ITS | Clinical Summary ---
Author Organization [employer] Address [address] [facility] 7 [place] [address] Care Team Providers Care Soft Top Installer Name Role Phone Mabel Ortiz MD Primary Care Provider [phone] Allergies No known active allergies Medications naproxen [...] Type Department Care Team Description 05/26/2024 Refill [facility] CHC MED & PEDS [address] [place] [address] Mabel Ortiz MD 05/11/2024 Telephone [facility] MEDICINE [address] [place], [place] [phone] Mabel Ortiz MD Nurse Triage from Last [...] HEPATITIS C ANTIBODY NON-REACT KANE NON-REACT KANE [facility] INDEX 0.01 <1.00 [facility] Comment: ?? HCV antibody was non-reactive. There is no laboratory ?? evidence of HCV infection. ?? In most cases, no further action is required. However, if recent HCV exposure is suspected, a test for HCV RNA (test code 17660) is suggested. ?? For additional information please refer to http://education.[employer]/faq/JBS51u1 (This link is being provided for informational/ educational purposes only.) ?? 05/30/2020 9:09 AM EST Mabel Ortiz MD HISTORICAL/NON ORDERABLE LABS Fi nal Result Performing Organization Address [facility] de Phone Number [facility] [address] * HIV 1/2 ANTIGEN/ANTIBODY,FOURTH GENERATION W/RFL (05/30/2020 9:09 AM EST) HIV-1/2 ANTIGEN AND ANTIBODIES, 4TH GENERATION W/ REFLEX NON-REACT KANE NON-REACT KANE [facility] Comment: HIV-1 antigen and HIV-1/HIV-2 [...] ? For additional information please refer to http://education.[employer]/faq/DUE508 (This link is being provided for informational/ educational purposes only.) ? The performance of this assay has not been clinically validated in patients less than 2 years old. ?? 05/30/2020 9:09 AM EST Mabel Ortiz MD LAB BLOOD ORDERABLES Final Resul t Performing Organization Address [facility] Phone Number [facility] [address] [place] [address], * LIPID PANEL, STANDARD (05/30/2020 9:09 AM [...] ?? Arsalan KIM et al. ARLET. 2013;310(19): 7669-7901 ?? (http://education.Labelby.me/faq/EDI576) Non-HDL Cholesterol 107 <130 mg/dL (calc) [facility] Comment: For patients with diabetes plus 1 major ASCVD risk ?? factor, treating to a non-HDL-C goal of <100 mg/dL ?? (LDL-C of <70 mg/dL) is considered a therapeutic ?? option. Triglycerides 76 <150 mg/dL [facility] 05/30/2020 9:09 AM EST us Mabel Ortiz MD LAB BLOOD ORDERABLES Final Resul t [facility] [address] from Last 3 Months or Most Recently Relevant to Health Maintenance Insurance Care Teams Soft Top Installer Relationship Specialty Start Date End Date Maebl Ortiz MD [address] [place] [address] PCP - General Family Medicine 05/27/13
--- OUTSIDE RECORDS SUMMARY | 2024-06-25 11:49 | XMS_ITS | Continuity of Care Document ---
Author Organization [facility] Address [address] [facility] [address] [place] [address] Phone Care Team Providers Care Digital Production Operator Name Role Phone Familia Tellez Unavailable Unavailable Procedures Procedure Date Sngl/mx Inj Scleros-veins; [place] - [place] Advance Directives Directive Yes / No Effective Date File Name No Information Encounters Encounter Description Practice Location Reason(s) For Visit Diagnoses Date Provider Providers Copied on Encounter [facility], [address] [facility] [address], [place], [place], [id number], tel:[phone] [place] - [place] - [place] [facility]ins - (Telangiect noelle) Rosalinda Barbosa. [address], [address], [place], [address], . tel:[phone] Referring Provider: Familia Caban, [address], [place], [place], [facility]. tel:[phone] Family History Family Member Type Diagnosis Age At Onset Mother Problem (finding) Diabetes mellitus Father Problem (finding) Varicose Veins Mother Problem (finding) Bleeding disorder Mother Problem (finding) Hypertension Sister Problem (finding) Varicose Veins Payers Payer name Insurance type Covered democrat ID Authoriza tion(s) Self Pay 09 Social [...]
--- OUTSIDE RECORDS SUMMARY | 2024-06-25 11:49 | XMS_ITS | Encounter Summary ---
Author Organization [employer] Address [address] [facility] 7 [place] [address] Care Team Providers Care Curriculum Developer Name Role Phone Mabel Ortiz MD Primary Care Provider [phone] Reason for Visit * Reason Onset Date Comments Med Refill 05/26/2024 Encounter Details Date Type Department Care Team (Late st Contact Info) Description 05/26/2024 Refill [facility] MED & PEDS [address] [place], [place] [phone] Mabel Ortiz MD [address] [place] [address] Social History Tobacco Use Types Packs/Day Years [...] 250 MG tablet To be sent to: [facility]/pharmacy #[id number] [place], [place] - [address] AT [employer] [facility] documented in this encounter Plan of Treatment Not on file documented as of this encounter Visit Diagnoses Not on filedocumented in this encounter Additional Health Concerns Assessment Noted Time PHQ-9 Depression Total Score: 0 10/10/19 24 11:23 AM EDT documented as of this encounter Care Teams Curriculum Developer Relationship Specialty Start Date End Date Mabel Ortiz MD [address] [place] [address] PCP - General Family Medicine 05/27/13 documented as of this encounter
--- OUTSIDE RECORDS SUMMARY | 2024-06-25 11:49 | XMS_ITS | Clinical Summary ---
Author Organization [facility] [address] [place] [address] [place] [phone] Phone Care Team Providers Care Slip Maker Name Role Phone Mabel Ortiz MD Primary Care Provider [phone] Allergies No known active allergies Medications Medication [...] EST Office Visit Obstetrics and Gynecology - [address] [phone] Aurora Mcclellan PA Abnormal uterine bleeding (AUB) (Primary Dx) 04/13/2024 1:15 PM EST Office Visit Obstetrics & Gynecology - [address] [phone] Tess Chun CNM Menorrhagia with regular cycle (Primary Dx) from Last 3 Months Surgical History Surgery Date Site/Laterality Comments SECTION PROCEDURE: HISTORICAL TUBAL LIGATION PROCEDURE: HISTORICAL TUBAL LIGATION BREAST SURGERY 2020 PROCEDURE: DC BREAST AUGMENTATION WITH IMPLANT; COMMENT: in [place] BELT ABDOMINOPLASTY 2020 PROCEDURE: HISTORICAL TUMMY TUCK; COMMENT: In [place] Medical History Medical History Date Comments Varicose [...] Clin 2003 Term F CS-Un spec Living Comments:[place] 2013 Term F Vag-S pont Living Comments:[facility] Last Filed Vital Signs Vital Sign Reading [...] AM EST Office Visit Obstetrics & Gynecology [address] [phone] Vanessa Russell CNM [address] [place] [phone] 08/03/2024 1:30 PM EDT Office Visit Obstetrics & [address] [phone] Vanessa Russell CNM [address] [place] [phone] Health Maintenance Due Date Last Done Comments [...] Procedure Name Priority Date/Time Associated Diagnosis Comments DC ENDOMETRIAL SAMPLING W/WO ENDOCERVICAL SAMPLING W/O CERVICAL DILATION Routine 06/24/2024 11:11 AM EST Abnormal uterine bleeding (AUB) HPV Routine 05/06/2023 HEPATITIS C SCREENING Routine 01/26/2022 HIV SCREENING Routine 01/26/2022 from Last 3 Months or Most Recently Relevant to Health Maintenance Results * DC ENDOMETRIAL SAMPLING W/WO ENDOCERVICAL SAMPLING W/O CERVICAL [...] DERABLES * Cervical Cancer Screening: HPV (05/06/2023) [facility] Cervical Cancer Screening: HPV Abstracted, negative Historical Provider [facility] * HIV Screening (01/26/2022) [facility] HIV Screening Abstracted Historical Provider [facility] * Hepatitis C Screening (01/26/2022) [facility] Hepatitis C Screening Abstracted Historical Provider [facility] from Last 3 Months or Most Recently Relevant to Health Maintenance Care Teams Slip Maker Relationship Specialty Start Date End Date Mabel Ortiz MD [address] [place] [address] PCP - General 06/21/16
[2024-06-25 11:59] LABS: MANUAL DIFF FLAG NO
[2024-06-25 12:43] LABS: Basophils Absolute Auto 0.1 X10*3/uL (0.0-0.2); Basophils Percent Auto 0.6 % (0-2); Eosinophils Absolute Auto 0.1 X10*3/uL (0.0-0.4); Eosinophils Percent Auto 0.8 % (0-4); Hematocrit 40.1 % (37.0-47.0); Hemoglobin 13.4 g/dl (12.0-16.0); Imm Gran Abs Auto 0.04 X10*3/uL (0.00-0.03); Imm Gran Pct Auto 0.5 % (0.0-0.4); Lymphocytes Absolute Auto 2.6 X10*3/uL (1.2-4.9); Lymphocytes Percent Auto 31.3 % (20-40); Mean Corpuscular HGB Conc 33.4 g/dl (31.0-35.0); Mean Corpuscular Hemoglobin 27.2 pg (27.0-33.0); Mean Corpuscular Volume 81.3 fL (80.0-98.0); Mean Platelet Volume 11.1 fL (9.4-12.3); Monocytes Absolute Auto 0.6 X10*3/uL (0.1-1.2); Monocytes Percent Auto 6.6 % (2-11); Neutrophils Absolute Auto 5.1 x10*3/uL (2.0-8.3); Neutrophils Percent Auto 60.2 % (45-73); Platelet Count 290 X10*3/uL (160-400); Red Blood Count 4.93 X10*6/uL (4.20-5.50); Red Cell Distribution Width 13.4 % (11.0-16.0); White Blood Count 8.4 X10*3/uL (4.8-10.8)
[2024-06-25 13:13] LABS: Alanine Aminotransferase 18 U/L (0-31); Albumin Level 3.9 g/dL (3.5-5.0); Alkaline Phosphatase 60 U/L (39-117); Anion Gap 10 (12-20); Aspartate Amino Transferase 22 U/L (5-31); Bilirubin Total 0.4 mg/dL (0.0-1.0); Blood Urea Nitrogen 12 mg/dL (9-16); Calcium 8.9 mg/dL (8.4-10.2); Carbon Dioxide 22 mmol/L (22-29); Chloride 110 mmol/L (96-108); Estimated Glomerular Filt Rate > 60; Glucose Random 96 mg/dL (60-115); Lipase 35 U/L (8-78); Sodium 138 mmol/L (135-145); Total Protein 7.2 g/dL (6.5-8.0)
[2024-06-25 13:33] LABS: Vitamin D 25-OH Total 17.9 ng/mL (>30)
[2024-06-25 13:39] LABS: Folate 7.8 ng/mL (> or = 4.0); Vitamin B12 591 pg/mL (200-900)
== END 2024-06-25 10:39 | disposition home or self-care (01) ==
LOC: HO.LAB 10:38
PROVIDERS: PCP Student in an Organized Health Care Education/Training Program; Visit Provider Internal Medicine Gastroenterology
DX: R10.9 Unspecified abdominal pain (principal); G89.29 Other chronic pain; R68.81 Early satiety; K21.9 Gastro-esophageal reflux disease without esophagitis
CPT/HCPCS: 36415; 80053; 82306; 82607; 82746; 83690; 85025

== ENCOUNTER 2024-06-25 10:38 | Outpatient (AMB) | payer MEDICAID, SELFPAY ==
--- OUTSIDE RECORDS SUMMARY | 2024-06-25 10:40 | XMS_ITS | Encounter Summary ---
Author Organization [employer] Address [address] [facility] 7 [place] [address] Care Team Providers Care Adding Machine Mechanic Name Role Phone Mabel Ortiz MD Primary Care Provider [phone] Reason for Visit * Reason Onset Date Comments Med Refill 05/26/2024 Encounter Details Date Type Department Care Team (Late st Contact Info) Description 05/26/2024 Refill [facility] MED [facility]S [address] [place], [place] [id number] Mabel Ortiz MD [address] [place] [address] Social History Tobacco Use Types Packs/Day Years Used Date Smoking Tobacco: Every Day Cigarettes 0.5 15 Smokeless Tobacco: Never Depression Answer Date Recorded Patient Health Questionnaire-9 Score 0 10/10/2023 Patient Health Questionnaire-9 Score 0 10/10/2023 Last PHQ-9: Questionnaire Data Not on file 0 10/10/2023 Housing Stability Answer Date Recorded What is your housing situation today? I have sam robb 10/02/[address] you li ve. Do you have problems with any of the following? None of the above 10/02/2023 Food Insecurity Answer Date Recorded Within the past 12 months, y ou worried that your food would run out before you got money to buy more: Never True 10/02/2023 Within the past 12 months,th e food you bought just didn't last and you didn't have enough money to get more: Never True Transportation Answer Date Recorded In the past 12 months, has l ack of transportation kept you from medical appts, meetings, work or from getting things needed for daily living? No 10/02/2023 Utilities Answer Date Recorded In the past 12 months, has t he electric, gas, oil or water company threatened to shut off services in your home? No 10/02/2023 Depression Answer Date Recorded Patient Health Questionnaire-2 Score 0 10/10/2023 Comments Unknown Sex and Gender Information Value Date Recorded Sex Assigned at Female 03/19/2022 10:21 AM EDT Legal Sex Female 10:21 AM EDT Gender Identity Female 03/19/2022 10:21 AM EDT Sexual Orientation Choose not to disclose 2021 10:21 AM EDT documented as of this encounter Miscellaneous Notes * Telephone Encounter - Berna Duvall - 05/26/2024 10:55 AM EST TC from pt requesting medication refill. Medications needing refill : ibuprofen 800 MG tablet naproxen (Naprosyn) 250 MG tablet To be sent to: [facility]/pharmacy #[id number] [place], [place] - [address] AT [facility] documented in this encounter Plan of Treatment Not on file documented as of this encounter Visit Diagnoses Not on filedocumented in this encounter Additional Health Concerns Assessment Noted Time PHQ-9 Depression Total Score: 0 10/10/19 24 11:23 AM EDT documented as of this encounter Care Teams Adding Machine Mechanic Relationship Specialty Start Date End Date Mabel Ortiz MD [address] [place] [id number] PCP - General Family Medicine 05/27/13 documented as of this encounter
--- OUTSIDE RECORDS SUMMARY | 2024-06-25 10:40 | XMS_ITS | Encounter Summary ---
Author Organization [employer] Address [address] [facility] [address] [place] [address] Care Team Providers Care Material Clerk Name Role Phone Mabel Ortiz MD Primary Care Provider [phone] Reason for Visit * Reason Onset Date Comments Nurse Triage 05/11/2024 Encounter Details Date Type Department Care Team ([facility] st Contact Info) Description 05/11/[address] [facility] [address] [place] [address] Mabel Ortiz MD [address] [place] [address] Nurse Triage Social History Tobacco Use Types Packs/Day Years [...] encounter Miscellaneous Notes * Telephone Encounter - Rebecca Gamble RN - 05/11/2024 3:07 PM EST [place] [id number]. Pt reports abdominal pain which comes and goes. Pt has had diarrhea since 05/09 and has 5-7 episodes today described as watery and yellow color. Pt vomited till 930am 05/09 and now is just nauseous. Pt denies fever, blood in the stool. Pt does report headache and unable to eat but, is trying to drink as much as possible. Pt did have a popsicle yesterday and was able to keep it down. Pt is advised to come to [facility] today open till 800pm or tomorrow morning opens at 830am. Pt agrees with disposition. Home care is mainly to encourage liquid intake. Protocol Used: Diarrhea (Adult) Protocol-Based Disposition: See in Office or Video Visit Today Override (Final) Disposition: See in Office or Video Visit Today or Tomorrow Override Reason: Other Video visit offer not recorded Positive Triage Questions: * Severe diarrhea (e.g., 7 or more times / day more than normal) and present > 24 hours (1 day) * Abdominal pain (Exceptions: Pain clears completely with each passage of diarrhea stool, or symptoms similar to previously diagnosed irritable bowel syndrome.) * All higher-acuity triage questions were negative Care Advice Discussed: * Reasons To Call Back - Signs of dehydration occur (such as no urine over 12 hours, very dry mouth, lightheaded, etc.) - Severe diarrhea lasts more than a day - Diarrhea lasts over 7 days - You become worse * Telephone Encounter - Kathryn Benavideziago - 05/11/2024 2:12 PM EST Symptoms: Diarrhea, Nausea. (No Vomiting since saturday morning) Outcome: Schedule an urgent appointment (within 4 hours) or talk to a nurse or provider soon Reason: Can't drink anything The caller accepted this outcome. Please contact (Surin[place]e) documented in this encounter Plan of Treatment Not on file documented as of this encounter Visit Diagnoses Not on filedocumented in this encounter Additional Health Concerns Assessment Noted Time PHQ-9 Depression Total Score: 0 10/10/19 24 11:23 AM EDT documented as of this encounter Care Teams Material Clerk Relationship Specialty Start Date End Date Mabel Ortiz MD [address] [place] [id number] PCP - General Family Medicine 05/27/13 documented as of this encounter
--- OUTSIDE RECORDS SUMMARY | 2024-06-25 10:40 | XMS_ITS | Encounter Summary ---
Author Organization [facility] Address [address] [place] [address] Care Team Providers Care Protective Service Specialist Name Role Phone Mabel Ortiz MD Primary Care Provider [phone] Reason for Visit * Reason Comments Abnormal Bleeding Encounter Details Date Type Department Care Team ([facility] st Contact Info) Description 06/24/2024 10:20 AM EST Office Visit Obstetrics and Gynecology - [facility] [address] [place] [address] Aurora Mcclellan PA [address] [place] [address] Abnormal uterine bleeding (AUB) (Primary Dx) Social History Tobacco Use Types Packs/Day Years Used Date Smoking Tobacco: Former Cigarettes Q uit: 11/18/2023 Smokeless Tobacco: Never Tobacco Cessation:Counseling Given: Not Answered Alcohol Use Standard Drinks/Week Comments Yes 0 (1 standard drink = 0.6 oz pur e alcohol) Sex and Gender Information Value Date Recorded Sex Assigned at Not on file Gender Identity Not on file Sexual Orientation Not on file Job Start Date Occupation Industry Not on file Not on file Not on file documented as of this encounter Last Filed Vital Signs Vital Sign Reading Time Taken Comments Blood Pressure 116/80 06/24/2024 10:23 AM EST Pulse 71 06/24/2024 10:23 AM EST Temperature - - Respiratory Rate 18 06/24/2024 10:23 AM EST Oxygen Saturation - - Inhaled Oxygen Concentration - - Weight 77.2 kg (170 lb 3.2 oz) 06/24/2024 10:23 AM EST Height 154.9 cm (5' 1 ) 06/24/2024 10:23 AM EST Body Mass Index 32.16 06/24/2024 10:23 AM EST documented in this encounter Ordered Prescriptions Prescription Sig Dispensed Refills Start Date End Da te medroxyPROGESTERone (PROVERA) 10 mg tablet Take 1 tablet (10 mg total) by mouth 2 (two) times a day. 60 each 06/24/2024 07/24/2024 documented in this encounter Progress Notes * MCKAYLA Argueta - 06/24/2024 10:20 AM ESTAssociated Order(s): Endometrial biopsy Post-Procedure Diagnose(s): Abnormal uterine bleeding (AUB) CHIEF COMPLAINT: Abnormal Bleeding IDENTIFIER:Katie Sheth is a 39 y.o. female. HPI: Katie presents today for evaluation of irregular menses and bleeding. Has been an ongoing issue since last summer. She reports she has trialed aygestin and another OCP without consistent control of her symptoms. An u/s from the summer showed a heterogenous makeup of the endometrium without excessive lining. Not currently on any hormones. Hx of tubal. ROS: GENERAL: Denies fever, chills, recent changes in weight HEENT: Denies sore throat, rhinorrhea, or changes in vision, taste or smell. RESPIRATORY: Denies cough, shortness of breath, or wheezing CARDIOVASCULAR: Denies CP, palpitations, tachycardia BREAST: Denies lumps, discharge, pain or change in skin GASTROINTESTINAL: Denies abdominal pain, N/V/D/C. Denies changes in appetite. 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 No concerning rash or itching NEUROLOGIC: Denies ROUSSEAU, LOC, weakness, dizziness, numbness or tingling. PAST MEDICAL HISTORY: Reviewed Past Medical History: 01/13/2019: Varicose veins of legs Comment: DX:Varicose veins of legs 01/13/2019: Vitamin D deficiency Comment: DX:Vitamin D deficiency MEDICATIONS: Current Outpatient Medications: cholecalciferol (VITAMIN D-3) 250 mcg (10,000 unit) capsule, TAKE 1 CAPSULE (250 MCG) BY MOUTH ONCEWEEKLY., Disp: , Rfl: ibuprofen (ADVIL,MOTRIN) 800 mg tablet, Take 1 tablet (800 mg total) by mouth., Disp: , Rfl: NAPROXEN ORAL, Take by mouth., Disp: , Rfl: omeprazole (PriLOSEC) [address] capsule, Take 20 mg by mouth daily., Disp: , Rfl: pantoprazole (PROTONIX) 40 mg EC tablet, Take 40 mg by mouth 2 Times Daily., Disp: , Rfl: senna 8.6 mg tablet, Take 1 tablet (8.6 mg total) by mouth. at bedtime., Disp: , Rfl: SUMAtriptan (IMITREX) 25 mg tablet, PLEASE SEE ATTACHED FOR DETAILED DIRECTIONS, Disp: , Rfl: topiramate (TOPAMAX) 25 mg tablet, TAKE 1 TABLET (25 MG) BY MOUTH EVERY 12 (TWELVE) HOURS., Disp: ,Rfl: triamcinolone acetonide (KENALOG-40) 40 mg/mL injection, 1 mL by Other route once for 1 dose., Disp: , Rfl: nicotine (NICODERM CQ) 7 mg/24 hr, PLACE 1 PATCH ON THE SKIN 1 TIME EACH DAY AT THE SAME TIME. (Patient not taking: Reported on 06/24/2024), Disp: , Rfl: norethindrone (AYGESTIN) 5 mg tablet, Take 1 tablet (5 mg total) by mouth 1 (one) time each day., Disp: 30 each, Rfl: 2 ALLERGIES: Patient has no known allergies. PHYSICAL EXAM: Visit Vitals BP 116/80 (BP Location: Left arm, Patient Position: Sitting, BP Cuff Size: Small adult) Pulse 71 Resp 18 Ht 1.549 m (61 ) Wt 77.2 kg (170 lb 3.2 oz) LMP 06/23/2024 (Exact Date) BMI 32.16 kg/m?? OB Status Having periods Smoking Status Former BSA 1.76 m?? GENERAL: Well-appearing, well-nourished patient SKIN: Warm, normal for ethnicity and dry. EYE: Visual horvath intact grossly, No conjunctiva injection. No scleral icterus. EENT: Normocephalic/atraumatic. Good dentition, NECK: Trachea midline. No visible evidence of thyroid enlargement. PULM: Non-labored breathing. No audible wheezing EXTREMITIES: ROM grossly intact. Normal Tone. No cyanosis, clubbing, or edema NEURO: Alert & oriented x3, no aphasia or dysarthria PSYCH: Normal affect, fluid speech, good eye contact, appropriate demeanor Pelvic: Exam chaperoned by medical administrative technician. Speculum used. External Genitalia: Normal architecture, without lesions. Vagina: Mucosa is pink with normal rugae. Blood in vault with old clots. Cervix/Uterus: No lesions or cervical motion tenderness Perianal area: without lesions LABS: No orders of the defined types were placed in this encounter. ASSESSMENT & PLAN: Given ultrasound results and high BMI, there is a risk for uterine cancer. Will obtain EMB. See procedure below. Will trial provera 10mg BID for bleeding until we have results and can discuss next steps in management. Procedure type: Endometrial biopsy Indication: AUB, heterogeneous uterine lining. Pre-procedure diagnosis: Heterogeneous endometrial lining, AUB Post-procedure diagnosis: same; s/p procedure Procedure in detail: The patient was positioned in the dorsal lithotomy position with medical administrative technician present and speculum was inserted into the vagina. The cervix was prepped with betadine and anterior lip was grasped with a single- toothed tenaculum. I encountered difficulty inserting the pipette into the cervix. The tenaculum was switched to the posterior lip of the cervix. A dilator was usedto gain entry to the uterus. The biopsy pipelle was then inserted 2 times into the uterine cavity to obtain an adequate specimen. Specimen was sent to pathology. No bleeding was appreciated from the os. The tenaculum was removed, no bleeing was appreciated from the tenaculu sites. Speculum was then removed. Specimen: endometrial sampling Findings: Sanguinous tissue sample. Complications: none Condition: stable Endometrial biopsy Date/Time: 06/24/2024 11:11 AM Performed by: MCKAYLA Argueta Authorized by: MCKAYLA Argueta Informed Consent: Relevant images/test results available and reviewed: yes Procedure: Cervix dilation: yes Cervix dilated with: Os finder Number of passes to obtain adequate specimen: 2 Patient tolerated procedure well with no complications: yes documented in this encounter Plan of Treatment Upcoming Encounters Date Type Department Care Team (Late st Contact Info) Description 07/09/2024 10:00 AM EST Office Visit Obstetrics & Gynecology - [address] [phone] Vanessa Russell, PIPE [facility] [place] [address] 08/03/2024 1:30 PM EDT Office Visit Obstetrics & Gynecology - [address] [phone] Vanessa Russell, CNM [address] [place] [address] Pending Results Name Type Priority Associated Diagnoses Date /Time Tissue Exam Pathology and Cytology Routine Abnormal uterine bleeding (AUB) 06/24/2024 12:56 PM EST documented as of this encounter Procedures Procedure Name Priority Date/Time Associated Diagnosis Comments IL ENDOMETRIAL SAMPLING W/WO ENDOCERVICAL SAMPLING W/O CERVICAL DILATION Routine 06/24/2024 11:11 AM EST Abnormal uterine bleeding (AUB) documented in this encounter Results * IL ENDOMETRIAL SAMPLING W/WO ENDOCERVICAL SAMPLING W/O CERVICAL DILATION (06/24/2024 11:11 AM EST) Narrative Aurora Mcclellan PA - 06/24/2024 11:11 AM EST MCKAYLA Argueta ? 06/24/2024 11:14 AM Endometrial biopsy Date/Time: 06/24/2024 11:11 AM Performed by: MCKAYLA Argueta Authorized by: MCKAYLA Argueta ?? Informed Consent: ??Relevant images/test results available and reviewed: yes ?? Procedure: ??Cervix dilation: yes ?Cervix dilated with: ??Os finder ??Number of passes to obtain adequate specimen: ??2 ??Patient tolerated procedure well with no complications: yes ?? Aurora BLOCK IN CLINIC/BEDSIDE OR DERABLES documented in this encounter Visit Diagnoses Diagnosis Abnormal uterine bleeding (AUB)- Primary documented in this encounter Discontinued Medications Medication Sig Discontinue Reason Start Date End Da te norethindrone (AYGESTIN) 5 mg tablet Take 1 tablet (5 mg total) by mouth 1 (one) time each day. 04/13/2024 06/24/2024 documented as of this encounter Orders Medications Ordered That Daniel ht Not Have Been Administered Count Last Ordered Date First Ordered Date ibuprofen (ADVIL,MOTRIN) tablet 800 mg 1 documented in this encounter Care Teams Protective Service Specialist Relationship Specialty Start Date End Date Mabel Ortiz MD [address] [place] [id number] PCP - General 06/21/16 documented as of this encounter
--- OUTSIDE RECORDS SUMMARY | 2024-06-25 10:40 | XMS_ITS | Continuity of Care Document ---
Author Organization [facility] Address [address] [place] [address] Phone Care Team Providers Care Intensive Care Unit Nurse Name Role Phone Familia Tellez Unavailable Unavailable Procedures Procedure Date Sngl/mx Inj Scleros-veins; [place] - [place] Advance Directives Directive Yes / No Effective Date File Name No Information Encounters Encounter Description Practice Location Reason(s) For Visit Diagnoses Date Provider Providers Copied on Encounter [facility], [address], [place], [place], [id number], tel:[phone] [place] - [place] - [place] [facility] - (Telangiect noelle) Rosalinda Barbosa. [address], [address], [place], [address], . tel:[phone] Referring Provider: Familia Caban, [address], [place], [place], [facility]. tel:[phone] Family History Family Member Type Diagnosis Age At Onset Mother Problem (finding) Diabetes mellitus Father Problem (finding) Varicose Veins Mother Problem (finding) Bleeding disorder Mother Problem (finding) Hypertension Sister Problem (finding) Varicose Veins Payers Payer name Insurance type Covered constitution party ID Authoriza tion(s) Self Pay 09 [...]
--- OUTSIDE RECORDS SUMMARY | 2024-06-25 10:40 | XMS_ITS | Clinical Summary ---
Author Organization [facility] [address] [place] [address] [place] [phone] Phone Care Team Providers Care Co Teacher Name Role Phone Mabel Ortiz MD Primary Care Provider [phone] Allergies No known active allergies Medications Medication Sig Dispensed Refills Start Date End Date Status NAPROXEN ORAL Take by mouth. Active omeprazole (PriLOSEC) [address] capsule Take 20 mg by mouth daily. Active pantoprazole (PROTONIX) 40 mg EC tablet Take 40 mg by mouth 2 Times Daily. 05/15/2020 Active triamcinolone acetonide (KENALOG-40) 40 mg/mL injection 1 mL by Other route once for 1 dose. 10/24/2023 Active cholecalciferol (VITAMIN D-3) 250 mcg (10,000 unit) capsule TAKE 1 CAPSULE (250 MCG) BY MOUTH ONCE WEEKLY. 01/05/2024 Active ibuprofen (ADVIL,MOTRIN) 800 mg tablet Take 1 tablet (800 mg total) by mouth. 10/07/2023 Active nicotine (NICODERM CQ) 7 mg/[address] 1 PATCH ON THE SKIN 1 TIME EACH DAY AT THE SAME TIME. 09/24/2023 Active SUMAtriptan (IMITREX) 25 mg tablet PLEASE SEE ATTACHED FOR DETAILED DIRECTIONS 09/24/2023 Active senna 8.6 mg tablet Take 1 tablet (8.6 mg total) by mouth. at bedtime. 04/25/2023 Active topiramate (TOPAMAX) 25 mg tablet TAKE 1 TABLET (25 MG) BY MOUTH EVERY 12 (TWELVE) HOURS. 12/29/2023 Active medroxyPROGESTERo ne (PROVERA) 10 mg tablet Take 1 tablet (10 mg total) by mouth 2 (two) times a day. 60 each 06/24/2024 07/24/2024 Active norethindrone (AYGESTIN) 5 mg tablet Take 1 tablet (5 mg total) by mouth 1 (one) time each day. 30 each 2 04/13/2024 06/24/2024 Discontinued Hospital, Clinic, or Other Facility Administered Medication Ordered Dose Route Frequency Start Date End Date Status ibuprofen (ADVIL,MOTRIN) tablet 800 mgIndications:Abnormal uterine bleeding (AUB) 800 mg oral Once 06/24/2024 Ac tive Active Problems Problem Noted Date Diagnosed Date Varicose veins of legs 01/13/2019 Vitamin D deficiency 01/13/2019 Encounters Date Type Department Care Team Description 06/24/2024 10:20 AM EST Office Visit Obstetrics and Gynecology - [address] [phone] Aurora Mcclellan PA Abnormal uterine bleeding (AUB) (Primary Dx) 04/13/2024 1:15 PM EST Office Visit Obstetrics & Gynecology - [address] [phone] Tess Chun CNM Menorrhagia with regular cycle (Primary Dx) from Last 3 Months Surgical History Surgery Date Site/Laterality Comments SECTION PROCEDURE: HISTORICAL TUBAL LIGATION PROCEDURE: HISTORICAL TUBAL LIGATION BREAST SURGERY 2020 PROCEDURE: OR BREAST AUGMENTATION WITH IMPLANT; COMMENT: in [place] BELT ABDOMINOPLASTY 2020 PROCEDURE: HISTORICAL TUMMY TUCK; COMMENT: In [place] Medical History Medical History Date Comments Varicose veins of legs 01/13/2019 DX:[place] se veins of legs Vitamin D deficiency 01/13/2019 DX:Vitamin D deficiency Family History Medical History Relation Name Comments Breast cancer Aunt 1 Colon cancer Father Uterine cancer Other 1 cousin Relation Name Status Comments Aunt 1 Aunt 2 Father Alive Maternal Grandfather Maternal Grandmother Mother Alive Other 1 Other 2 Paternal Grandfather Paternal Grandmother Social History Tobacco Use Types Packs/Day Years [...] file Not on file Not on file Obstetrics History Para Term AB IAB SAB Ectopic Multiple Livin g Live Births 2 2 2 2 2 Date Outcome GA Total Labor Labor/2nd/3rd Weight Sex Type Anes PTL Dayana A1 A5 Name Clin 2003 Term F CS-Un spec Living Comments:[place] 2013 Term F Vag-S pont Living Comments:[facility] Last Filed Vital Signs Vital Sign Reading [...] Mass Index 32.16 06/24/2024 10:23 AM EST Plan of Treatment Upcoming Encounters Date Type Department Care Team (Late st Contact Info) Description 07/09/2024 10:00 AM EST Office Visit Obstetrics & Gynecology [address] [phone] Vanessa Russell CNM [address] [place] [address] 08/03/2024 1:30 PM EDT Office Visit Obstetrics & [address] [phone] Vanessa Russell CNM [address] [place] [phone] Health Maintenance Due Date Last Done Comments Breast Cancer Screening 1984 Hepatitis B Vaccines (1 of 3 - 19+ 3-dose series) 2003 Social Influencers of Health Screening 04/28/2022 COVID-19 Vaccine ( season) 2024 04/25/2021, 10/03/2020, 08/31/2020 Influenza Vaccine (#1) 2024 3, 03/21/2022, 03/14/2021, Additional history exists Depression Screening 10/09/2024 10/10/2023 Cholesterol Screening (Lipid Panel) 05/30/2025 05/30/2020 DTaP,Tdap,and Td Vaccines (3 - Td or Tdap) 03/28/2027 03/28/2017, 09/03/2013 Cervical Cancer Screening: HPV 05/06/2028 05/06/2023 MMR Vaccines Aged Out 11/25/2013 No longer eligi ble based on patient's age to complete this topic HIV Screening Completed 01/26/2022, 05/30/2020 Hepatitis C Screening Completed 01/26/2022 HIB Vaccines Aged Out No longer eligi ble based on patient's age to complete this topic HPV Vaccines Aged Out No longer eligi ble based on patient's age to complete this topic Hepatitis A Vaccines Aged Out No long er eligible based on patient's age to complete this topic IPV Vaccines Aged Out No longer eligi ble based on patient's age to complete this topic Meningococcal ACWY Vaccine Aged Out N o longer eligible based on patient's age to complete this topic Pneumococcal Vaccine: Pediatrics (0 to 5 Years) and At-Risk Patients (6 to 64 Years) Aged Out No longer eligible based on patient's age to complete this topic RSV Immunization Patients Under 20 months Aged Out No longer eligible based on patient's age to complete this topic Varicella Vaccines Aged Out No longer eligible based on patient's age to complete this topic Procedures Procedure Name Priority Date/Time Associated Diagnosis Comments OR ENDOMETRIAL SAMPLING W/WO ENDOCERVICAL SAMPLING W/O CERVICAL DILATION Routine 06/24/2024 11:11 AM EST Abnormal uterine bleeding (AUB) HPV Routine 05/06/2023 HEPATITIS C SCREENING Routine 01/26/2022 HIV SCREENING Routine 01/26/2022 from Last 3 Months or Most Recently Relevant to Health Maintenance Results * OR ENDOMETRIAL SAMPLING W/WO ENDOCERVICAL SAMPLING W/O CERVICAL [...] ?? Aurora BLOCK IN CLINIC/BEDSIDE OR DERABLES * Cervical Cancer Screening: HPV (05/06/2023) [facility] Cervical Cancer Screening: HPV Abstracted, negative Historical Provider [facility] * HIV Screening (01/26/2022) [facility] HIV Screening Abstracted Historical [facility] * Hepatitis C Screening (01/26/2022) [facility] Hepatitis C Screening Abstracted Historical Provider [facility] from Last 3 Months or Most Recently Relevant to Health Maintenance Care Teams Co Teacher Relationship Specialty Start Date End Date Mabel Ortiz MD [address] [place] [address] PCP - General 06/21/16
--- OUTSIDE RECORDS SUMMARY | 2024-06-25 10:40 | XMS_ITS | Clinical Summary ---
Author Organization [employer] Address [address] [facility] 7 [place] [address] Care Team Providers Care Forensic Pathologist Name Role Phone Mabel Ortiz MD Primary Care Provider [phone] Allergies No known active allergies Medications naproxen (Naprosyn) 250 MG tabletIndication s:Pain TAKE 1 TABLET BY MOUTH TWICE A DAY WITH FOOD 60 tablet 4 3 Active SUMAtriptan (Imitrex) 25 MG tabletIndication s:Other migraine without status migrainosus, not intractable Take 1 tablet (25 mg) by mouth 1 (one) time if needed for migraine for up to 27 doses. May repeat dose once in 2 hours if no relief. Do not exceed 2 doses in 24 hours. 9 tablet 2 4 Active topiramate (Topamax) 25 MG tabletIndication s:Other migraine without status migrainosus, not intractable Take 1 tablet (25 mg) by mouth every 12 (twelve) hours. 60 tablet 11 4 09/24/19 25 Active nicotine (Nicoderm CQ) 7 MG/24HR patchIndications :Smoking Place 1 patch on the skin 1 (one) time each day at the same time. 30 patch 4 Active naproxen (Naprosyn) 250 MG tablet Take 1 tablet (250 mg) by mouth with breakfast and with evening meal. 60 tablet 11 5 05/26/19 26 Active ibuprofen 800 MG tablet Take 1 tablet (800 mg) by mouth 3 times daily. 90 tablet 3 5 06/25/19 25 Active Active Problems Problem Noted Date Diagnosed Date Chronic migraine without aur a without status migrainosus, not intractable 10/10/2023 Encounters Date Type Department Care Team Description 05/26/2024 Refill [facility] MED & PEDS [address] [place] [address] Mabel Ortiz MD 05/11/2024 Telephone [facility] MEDICINE [address] [place], [place] [phone] Mabel Ortiz MD Nurse Triage from Last 3 Months Immunizations Name Administration Dates Next Due Influenza injectable quadrivalent preservative f ree 03/04/2023 Family History Medical History Relation Name Comments Migraines Mother Relation Name Status Comments Mother Social History Tobacco Use Types Packs/Day Years Used Date Smoking Tobacco: Every Day Cigarettes 0.5 15 Smokeless Tobacco: Never Tobacco Cessation:Ready to Q uit: Not Asked; Counseling Given: Not Answered Depression Answer Date Recorded Patient Health Questionnaire-9 Score 0 10/10/2023 Patient Health Questionnaire-9 Score 0 10/10/2023 Last PHQ-9: Questionnaire Data Not on file 0 10/10/2023 Housing Stability Answer Date Recorded What is your housing situation today? I have samteri robb 10/02/[address] you [...] not to disclose 2021 10:21 AM EDT Last Filed Vital Signs Vital Sign Reading Time Taken Comments Blood Pressure 100/60 10/10/2023 11:19 AM EDT Pulse 57 10/10/2023 11:19 AM EDT Temperature 36.7 ??C (98 ??F) 10/10/2023 11:19 AM EDT Respiratory Rate 18 10/10/2023 11:19 AM EDT Oxygen Saturation 98% 10/10/2023 11:19 AM EDT Inhaled Oxygen Concentration - - Weight 75.3 kg (166 lb) 10/10/2023 11:19 AM EDT Height 157.5 cm (5' 2 ) 10/10/2023 11:19 AM EDT Body Mass Index 30.36 10/10/2023 11:19 AM EDT Plan of Treatment Health Maintenance Due Date Last Done Comments Alcohol/Substance Use Screening 1996 Family Planning (PISQ) 1999 Hepatitis B Vaccines (1 of 3 - 19+ 3-dose series) 2003 Pneumococcal Vaccine: Pediatrics (0 to 5 Years) and At-Risk Patients (6 to 49) Years) (1 of 2 - PCV) 2003 Pap Smear 2005 Cervical Cancer Screening 2014 HPV/Cotest 2014 COVID-19 Vaccine ( season) 2024 04/25/2021, 10/03/2020, 08/31/2020 Influenza Vaccine (#1) 2024 3, 03/21/2022, 03/14/2021, Additional history exists Mammogram 2024 Tobacco Screening 09/23/2024 09/24/2023 SDOH Screening 10/01/2024 10/02/2023 Depression Screening 10/09/2024 10/10/2023, 10/10/19 24 Lipid Panel 05/30/2025 05/30/2020 DTaP/Tdap/Td Vaccines (3 - Td or Tdap) 03/28/2027 03/28/2017, 09/03/2013 Zoster Vaccines (1 of 2) 2034 RSV Patients and Patients Aged 60 years or older (1 - 1-dose 75+ series) 2059 HIV Screening Completed 05/30/2020 Hepatitis C Screening Completed 05/30/2020 HIB Vaccines Aged Out No longer eligi [...] patient's age to complete this topic Meningococcal Vaccine Aged Out No heidi carmelo eligible based on patient's age to complete this topic RSV under 20 months Aged Out No longe r eligible based on patient's age to complete this topic Rotavirus Vaccines Aged Out No longer eligible based on patient's age to complete this topic Procedures Procedure Name Priority Date/Time Associated Diagnosis Comments ZZZ HISTORICAL HEPATITIS C AB W/REFL TO HCV RNA, QN, PCR Routine 05/30/2020 9:09 AM EST HIV 1/2 ANTIGEN/ANTIBODY, FOURTH GENERATION W/RFL Routine 05/30/2020 9:09 AM EST LIPID PANEL, STANDARD Routine 05/30/2020 9:09 AM EST from Last 3 Months or Most Recently Relevant to Health Maintenance Results * HEPATITIS C AB W/REFL TO HCV RNA, QN, PCR (05/30/2020 9:09 AM EST) HEPATITIS C ANTIBODY NON-REACT KANE NON-REACT KANE [facility] INDEX 0.01 <1.00 [facility] Comment: ?? HCV antibody was non-reactive. There is no laboratory ?? evidence of HCV infection. ?? In most cases, no further action is required. However, if recent HCV exposure is suspected, a test for HCV RNA (test code 78558) is suggested. ?? For additional information please refer to http://education.[employer]/faq/BGP61h5 (This link is being provided for informational/ educational purposes only.) ?? 05/30/2020 9:09 AM EST Mabel Ortiz MD HISTORICAL/NON ORDERABLE LABS Fi nal Result Performing Organization Address [facility] de Phone Number [facility] [address] * HIV 1/2 ANTIGEN/ANTIBODY,FOURTH GENERATION W/RFL (05/30/2020 9:09 AM EST) HIV-1/2 ANTIGEN AND ANTIBODIES, 4TH GENERATION W/ REFLEX NON-REACT KANE NON-REACT KANE [facility] Comment: HIV-1 antigen and HIV-1/HIV-2 antibodies were not detected. There is no laboratory evidence of HIV infection. ?? PLEASE NOTE: This information has been disclosed to you from records whose confidentiality may be protected by state law. ??If your state requires such protection, then the state law prohibits you from making any further disclosure of the information without the specific written consent of the person to whom it pertains, or as otherwise permitted by law. A general authorization for the release of medical or other information is NOT sufficient for this purpose. ? For additional information please refer to http://education.[employer]/faq/PVT179 (This link is being provided for informational/ educational purposes only.) ? The performance of this assay has not been clinically validated in patients less than 2 years old. ?? 05/30/2020 9:09 AM EST Mabel Ortiz MD LAB BLOOD ORDERABLES Final Resul t Performing Organization Address [facility] Phone Number [facility] [address] [place] [address], * LIPID PANEL, STANDARD (05/30/2020 9:09 AM EST) Chol/HDLC Ratio 2.6 <5.0 (calc) [facility] Cholesterol, Total 175 <200 mg/dL [facility] HDL Cholesterol 68 > OR = 50 mg/dL [facility] LDL Cholesterol 90 mg/dL (calc) [facility] Comment: Reference range: <100 ?? Desirable range <100 mg/dL for primary prevention; ?? <70 mg/dL for patients with CHD or diabetic patients ?? with > or = 2 CHD risk factors. ?? LDL-C is now calculated using the Mariam ?? calculation, which is a validated novel method providing ?? better accuracy than the Friedewald equation in the ?? estimation of LDL-C. ?? Arsalan KIM et al. ARLET. 2013;310(19): 1066-6255 ?? (http://education.[employer]/faq/ARO513) Non-HDL Cholesterol 107 <130 mg/dL (calc) [facility] Comment: For patients with diabetes plus 1 major ASCVD risk ?? factor, treating to a non-HDL-C goal of <100 mg/dL ?? (LDL-C of <70 mg/dL) is considered a therapeutic ?? option. Triglycerides 76 <150 mg/dL [facility] 05/30/2020 9:09 AM EST us Mabel Ortiz MD LAB BLOOD ORDERABLES Final Resul t [facility] [address] from Last 3 Months or Most Recently Relevant to Health Maintenance Insurance Care Teams Forensic Pathologist Relationship Specialty Start Date End Date Mabel Ortiz MD [address] [place] [id number] PCP - General Family Medicine 05/27/13
--- OUTSIDE RECORDS SUMMARY | 2024-06-25 10:40 | XMS_ITS | Continuity of Care Document ---
Author Organization [facility] Address [address] [place] [address] [address] [place] [address] Phone Care Team Providers Care Manager Construction Name Role Phone Neeraj BUSTILLOS FACS CARLT CALI, James Felix Unavailable Unavailable Allergies, Adverse Reactions, Alerts Substance Reaction Status Criticality No Known Allergies Active No Inform ation Procedures Procedure Date No Charge For Services Sngl/mx Inj Scleros-veins; Haas Advance Directives Directive Yes / No Effective Date File Name No Information Encounters Encounter Description Practice Location Reason(s) For Visit Diagnoses Date Provider Providers Copied on Encounter [facility], [address] [place] [address] [address], [place], [id number], [place] tel:[phone] [facility] - [place] Spider Veins - (Telangiect noelle) 3 Neeraj BUSTILLOS FACS JUAN CARLOS Felix. [address] [address], [place], [address], [place]. tel:[phone] Referring Provider: Mabel Ortiz MD, [address], [address]. tel:[phone] [facility], [address] [place] [address] [address], [id number], [place] tel:[phone] [facility] - [place] [facility] Veins - (Telangiect noelle) 3 Katty Sanchez . [address] [facility], [address] [address], [place], [place], [id number] , [place]. tel:[phone] Referring Provider: Mabel Ortiz MD, [address], [place], [address]. tel:[phone] Family History Family Member Type Diagnosis Age At Onset No Information Payers Payer name Insurance type Covered republican ID Authoriza tion(s) Self Pay 09 Social History Type Description Quantity Date Captured Comments Sex Female Smoking Status No Information Chief Complaint And Reason For Visit No Information Reason For Referral Reason For Referral No Information History Of Present Illness Encounter Date Complaint History Of Prese nt Illness No Information Functional Status Date Functional Assessmen t No Information Instructions Date Instruction Additional Infor mation No Information Assessments Type Assessment Date assessment Spider Veins - (Telangiectasia) Patient Care Teams Name Effective Dates (start - stop) Status Members No Information
--- OUTSIDE RECORDS SUMMARY | 2024-06-25 10:40 | XMS_ITS | Continuity of Care Document ---
Author Organization [facility] Address [address] [place] [address] [address] [place] [phone] Phone Care Team Providers Care Gift Shop Clerk Name Role Phone Christel Fitch Unavailable Unavailable Procedures Procedure Date PT Did Not Receive Services Advance Directives Directive Yes / No Effective Date File Name No Information Encounters Encounter Description Practice Location Reason(s) For Visit Diagnoses Date Provider Providers Copied on Encounter [facility], [address] [place] [address] Dr [address], [place], [id number], [place] tel:[phone] Replaced by [facility] No Information 1 [place]. [address] [place] [address], [id number], . tel:[phone] Referring Provider: Christel Fitch, [address] [place] [address], [address] . tel:[phone] Family History Family Member Type Diagnosis Age At Onset No Information Payers Payer name Insurance type Covered democrat ID Authoriza tion(s) No Information Social History Type Description Quantity Date Captured [...]
--- OUTSIDE RECORDS SUMMARY | 2024-06-25 10:40 | XMS_ITS | Encounter Summary ---
Author Organization [employer] Address [address] [facility] [address] [place] [address] Care Team Providers Care Insurance Claims Examiner Name Role Phone Mabel Ortiz MD Primary Care Provider [phone] Encounter Details Date Type Department Care Team ([facility] st Contact Info) Description 12/02/2023 Orders Only [facility] MED & PEDS [address] [place] [address] ProviderPamela MD Social History Tobacco Use Types Packs/Day Years Used Date Smoking Tobacco: Every Day Cigarettes 0.5 15 Smokeless Tobacco: Never Depression Answer Date Recorded Patient Health Questionnaire-9 Score 0 10/10/2023 Patient Health Questionnaire-9 Score 0 10/10/2023 Last PHQ-9: Questionnaire Data Not on file 0 10/10/2023 Housing Stability Answer Date Recorded What is your housing situation today? I have sam sing 10/02/[address] you li [...] AM EDT documented as of this encounter Plan of Treatment Not on file documented as of this encounter Procedures Procedure Name Priority Date/Time Associated Diagnosis Comments EMG Routine 11/19/2023 8:52 AM EDT documented in this encounter Results * EMG (11/19/2023 8:52 AM EDT) us Historical Provider NEUROLOGY ORDERABLES Kathryn l Result documented in this encounter Visit Diagnoses Not on filedocumented in this encounter Additional Health Concerns Assessment Noted Time PHQ-9 Depression Total Score: 0 10/10/19 24 11:23 AM EDT documented as of this encounter Care Teams Insurance Claims Examiner Relationship Specialty Start Date End Date Mabel Ortiz MD [address] [place] [address] PCP - General Family Medicine 05/27/13 documented as of this encounter
[2024-06-25 10:41] VITALS: BP 97/56; PULSE 79; O2SAT 99; BMI 32.1
--- NOTE | 2024-06-25 10:41 | A.OFFVIS_ITS ---
Vital Signs 06/25/24 10:41 Height 5 ft 1 in Weight 170 lb BMI 32.1 BP 97/56 L Blood Pressure Location Lt brachial Position Sitting Pulse 79 Pulse Oximetry (%) 99 Oxygen Delivery Method Room Air Intake Visit Reasons: 8 month follow up Intake Note: Patient 8 month follow up for Chronic abdominal pain Patient cc: acid reflex with some burning sensation before and after eating, a lot of burping at night time, and constipation on and off. Patient also said she feel her food is not digestive. She did not did lab order judd. Head Banquet Waiter/Waitress Required: Yes Head Banquet Waiter/Waitress Name: Sabiha Valentine/GI dept Accompanied by: Self / Same As Patient Allergies No Known Allergies [No Known Allergies*] Allergy (Verified 06/25/24 10:40) Medication List - Last Reconciled 06/25/24 by Juan Tan MD cholecalciferol (vitamin D3) 250 mcg PO QWEEK 90 days ibuprofen 800 mg PO TID naproxen 250 mg PO BID PRN omeprazole 20 mg PO BID sennosides (senna) 8.6 mg PO BEDTIME sucralfate (Carafate) 10 mL PO TID 30 days HPI HPI 8 month follow up: Details: GI VISIT FOR THIS 39-YEAR-OLD VIETNAMESE-SPEAKING FEMALE FOR FOLLOW-UP OF GERD AND EPIGASTRIC PAIN Patient is status post cholecystectomy in 2017 ? ?? CHRONIC ILLNESSES:?H pylori 11/2011; Neg Ag 08/2015, INSOMNIA, VITAMIN-D DEFICIENCY, SMOKER ?TODAY'S VISIT Patient cc: acid reflex with some burning sensation before and after eating, a lot of burping at night time, and constipation on and off. Patient also said she feel her food is not digestive. [facility] Seen at ER in [place] in Apr with nausea, vomiting, abd pain and diarrhea She was told her stomach was inflammed. Treated with IV medication and PO anti nausea medications at discharge Symptoms resolved after 2 weeks Has intermittent constipation and takes medications prn Complains of bloating and gas Epigastric burning before and after she eats - no precipitating foods Also admits to early satiety and increased gas. Does not take milk products. Usually has dinner at 6 and goes to bed at 8 pm and unable to lie flat due to acid reflux Denies change in appetite or weight. Takes Ibuprofen for HAs once a week Naproxen for menstrual pain and Carpel tunnel syndrome. Pt elected to proceed with the visit without an jack tamp operator since she does not have any GI concerns today Heartburn well controlled with Omeprazole with occasional breakthrough symptoms associated with diet Abd pain resolved since GB surgery Denies constipation Having Thanksgiving at her home Dad and brother are planning to visit from [place] over Xmas PAST VISIT: Everything is the same Taking Omeprazole 20 mg twice a day and sometimes Carafate 2-3 times daily with meals. ? Heartburn is well controlled with above medications ? Takes Naproxen or Ibuprofen intermittently for CTS - 1-2 times a week PAST VISITS: Abd CT scan results reviewed. ? Has noted constipation recently and has a BM every 3 to 4 days ? Continues to have upper abdominal pain in her stomach with burning sensation. ? from time to time and medication has helped a lot. ? Denies dysphagia. ? Medications are helping with her GERD. Denies any other GI symptoms. ? Doing good and heartburn is better. ? Scheduled for a 2nd dose of COVID vaccine next week. ? Patient was prescribed pantoprazole after a previous visit, she notes better relief of symptoms with omeprazole and was switched back to Omeprazole. ? She was started on Famotidine and does not notice any change in heartburn. ? Has been taking Omeprazole for the past several yrs. ? Does not recall taking Pantoprazole in the past. ? Had a physical with her PCP and had lab tests done which were normal. ? Has constant heartburn which does not go away. ?Taking Omeprazole twice daily which is helpful. ? Has been taking Carafate which has not been very helpful ? Sometimes the medication helps and sometimes it does not. ? Notes pain in the pit of her stomach. ? Unable to identify any precipitating factors. ? Can have abdominal pain before eating. ? Symptoms are worse at night. ? Appetite is good and denies any change in weight. ? Takes Omperazole twice a day after meals - one in the morning and once at night - advised to take 20 to 30 min before meals. Also take Carafate twice a day. ? Has dinner at 5 pm and goes to sleep at 10 pm. Sleeps almost upright with several pillows and can still have nocturnal regurgitation. ? She usually notes Epigastric pain an hour after eating. Pain improves with taking Maalox. Notes intermittent nausea with abdominal pain and denies chest pain, dysphagia bloating, gas, constipation or?diarrhea. She takes ETOH occasionally and stopped drinking sodas. ? Weight has been?stable IMAGING STUDIES: 02/[address] SHOWED: GASTROINTESTINAL TRACT: There is scattered stool and gas seen throughout the colon without significant distention. The small bowel loops are normal caliber.? PELVIC VISCERA: The uterus is anteverted and appears unremarkable. No adnexal mass or free fluid seen. IMPRESSION: No acute intra-abdominal process seen. Mild constipation. ? 12/04 ABDOMINAL ULTRASOUND SHOWED: Ring down artifact from the gallbladder wall suggestive of adenomyomatosis of the gallbladder wall. Otherwise unremarkable exam. Patient is status post cholecystectomy in 2018 ? ENDOSCOPIC STUDIES: 07/24/21 EGD SHOWED: LARYNX: Edema of arytenoid cartilages suggestive of LPRD ESOPHAGUS: Normal STOMACH: Mild diffuse gastric erythema. Biopsies were obtained from the antrum and body of the stomach. DUODENUM: Normal - biopsied to check for celiac sprue Plan:? Above findings were reviewed with the patient and GERD and Diet for Gastritis handouts were given in the discharge area BIOPSIES SHOWED: A.? Small bowel, biopsy:? Small bowel mucosa within normal limits; preserved villous architecture and no increased intraepithelial lymphocytes seen.? B.? Stomach, antrum, biopsy:? Gastric antral mucosa within normal limits; negative for Helicobacter pylori, intestinal metaplasia and dysplasia.? C.? Stomach, body, biopsy:? Gastric body mucosa within normal limits; negative for Helicobacter pylori, intestinal metaplasia and dysplasia. EGD on 11/04/17 showed: ? Larynx: Edema of arytenoid cartilages ? Esophagus: Minimal esophagitis at GE junction. Biopsies obtained from the proximal esophagus. ? Stomach: Mild diffuse erythema involving the entire stomach - antral biopsies obtained ? Duodenum: Normal. ? Biopsies: ? A. UNREMARKABLE GASTRIC ANTRAL-TYPE MUCOSA. AN IMMUNOSTAIN FOR HELICOBACTER PYLORI IS NEGATIVE. ? B. UNREMARKABLE ESOPHAGEAL SQUAMOUS MUCOSA. THERE IS NO EVIDENCE OF EOSINOPHILIC ESOPHAGITIS [facility] Medical History COVID-19 vaccine series completed Helicobacter pylori infection (~11/2011) Surgical History Hx laparoscopic cholecystectomy (~01/2018) Status post [place] teeth removed History of esophagogastroduodenoscopy (~11/2011) Family History Mother HTN (hypertension) Social History Household Members: None Alcohol intake: current Alcohol intake frequency: holidays/special occasions only Patient Tobacco Use Status: Tobacco use Unknown Review of Systems Const All systems reviewed & are unremarkable except as noted in HPI and below Physical Exam Vital Signs: Last Vital Signs Pulse 79 06/25/24 10:41 BP 97/56 L 06/25/24 10:41 Pulse Ox 99 06/25/24 10:41 Oxygen Delivery Method Room Air 06/25/24 10:41 BMI result Body Mass Index 32.1 Const General: healthy appearing and no acute distress Nutritional Appearance: overweight Orientation/consciousness: patient oriented x3 Limitations: no limitations HEENT Head: Yes normal to inspection Ears: hearing grossly normal bilaterally Eyes Sclerae: sclerae normal Pupils: Equal, round and reactive pupils present Neck Neck: Yes normal visual inspection Chest Chest palpation & inspection: normal inspection of the chest Resp Effort & Inspection: normal respiratory effort Auscultation: clear to auscultation bilaterally Cardio Palpation: normal PMI Rate: regular rate Rhythm: regular rhythm Heart sounds: S1 normal heart sound present, S2 normal heart sound present and no murmurs GI Palpation (GI): Soft to palpation, nontender and No hepatosplenomegaly present Auscultation: normal bowel sounds Rectal Exam - Female: deferred Skin General skin exam: no rashes or lesions noted Neuro General: patient oriented x3, gait normal and moves all extremities Cranial nerves: Yes Equal, round and reactive pupils present Psych Appearance: grossly normal Mental Status: mental status grossly normal Assessment & Plan Assessment & Plan (1) GERD (gastroesophageal reflux disease): Comment: Continue omeprazole twice daily and Carafate 2-3 times daily. Code(s): K21.9 - Gastro-esophageal reflux disease without esophagitis Category: Medical (2) Adenomyomatosis of gallbladder: Comment: status post cholecystectomy Code(s): D13.5 - Benign neoplasm of extrahepatic bile ducts Category: Medical (3) Chronic abdominal pain: Code(s): R10.9 - Unspecified abdominal pain; G89.29 - Other chronic pain Category: Medical (4) Chronic constipation: Code(s): K59.09 - Other constipation Category: Medical (5) Early satiety: Code(s): R68.81 - Early satiety Category: Medical Plan 39 year old Prydeinig-speaking female with history of smoking and long standing symptoms with heartburn and nocturnal regurgitation every night. Her symptoms have improved since she increased dose of Omeprazole to 40 mg twice daily. Use of NSAIDS and smoking and recent weight gain are likely contributing to worsening GERD symptoms. 10/2017 EGD showed diffuse gastritis and minimal esophagitis at GE junction. Biopsies were negative for EOE and H Pylori. Patient was prescribed pantoprazole after her last visit, she noted better relief of symptoms with omeprazole and was switched back to Omeprazole. 07/2021 Repeat EGD was performed and results as noted above. 01/[address] scan was negative except for constipation. Pt was prescribed senna for constipation - takes prn 10/21/23 GERD symptoms are well controlled with medications To continue Omeprazole 20 mg twice daily and sucralfate prn . 06/25/24 Schedule GES FODMAP diet x 6 weeks FU in 6 weeks - scheduled 08/13/24 ADDENDUM: GES SHOWED: 1 hour 88% (normal 37%-90%) 2 hours 38% (normal 30%-60%) 3 hours 6% Orders: Orders NM gastric emptying study 06/25/24 R68.81 - Early satiety Complete Blood Count Auto Diff 06/25/24 R10.9 - Unspecified abdominal pain, G89.29 - Other chronic pain, R68.81 - Early satiety Vitamin B12 and Folate 06/25/24 R10.9 - Unspecified abdominal pain, G89.29 - Other chronic pain, R68.81 - Early satiety Vitamin D 25-OH Total 06/25/24 R10.9 - Unspecified abdominal pain, G89.29 - Other chronic pain, R68.81 - Early satiety Lipase 06/25/24 R10.9 - Unspecified abdominal pain, G89.29 - Other chronic pain, R68.81 - Early satiety Coding Level of Care Code Est Pt Level 4 (39729) Diagnoses GERD (gastroesophageal reflux disease) K21.9 Adenomyomatosis of gallbladder D13.5 Chronic abdominal pain R10.9; G89.29 Chronic constipation K59.09 Early satiety R68.81 Time Spent (min) 25
== END 2024-06-25 11:35 | disposition home or self-care (01) ==
LOC: HO.HGI 10:38
PROVIDERS: PCP Student in an Organized Health Care Education/Training Program; Visit Provider Internal Medicine Gastroenterology
DX: K21.9 Gastro-esophageal reflux disease without esophagitis (principal); D13.5 Benign neoplasm of extrahepatic bile ducts; R10.9 Unspecified abdominal pain; G89.29 Other chronic pain; K59.09 Other constipation; R68.81 Early satiety
CPT/HCPCS: 99214

== ENCOUNTER → 2024-07-15 08:04 | Outpatient (REF) | payer MEDICAID, SELFPAY ==
--- NOTE | ~2024-07-15 | NM_ITS ---
EXAMINATION: MS RADIONUCLIDE SOLID FOOD GASTRIC EMPTYING 4-HOUR STUDY CLINICAL INFORMATION: Early satiety COMPARISON: None TECHNIQUE: A standard meal consisting of 4 oz of Egg Beaters brand tagged with 1 mCi Tc-99m Sulfur Colloid, 6 oz water and 2 slices of toast with jelly was administered orally to the patient. Images were obtained using a dual head gamma camera in the anterior and posterior projections over of the stomach immediately post ingestion and at hourly intervals up to 4 hours post ingestion. The anterior and posterior counts at each time interval were averaged using the geometric mean and expressed as percentage of the immediate post ingestion counts. FINDINGS: There is good visualization of activity in the stomach immediately post ingestion. As the study progresses, there is good clearance of activity from the stomach and visualization of progressively increasing small bowel activity. By the end of the study, there is almost no retention noted in the stomach. Retention in the stomach at each time interval was: 1 hour 88% (normal 37%-90%) 2 hours 38% (normal 30%-60%) 3 hours 6% MS/MS gastric emptying study IMPRESSION: Normal 4-hour solid food gastric emptying study. For solid meal, rapid gastric emptying is less than 30% at 60 minutes. Delayed gastric emptying criteria is more than 60% remaining at 120 minutes or more than 10% at 240 minutes. The 4-hour value is the best discriminator of a normal or abnormal result). Gastric emptying study grading per JNMT Consensus Recommendations in 2008 (https://tech.snmjournals.org/content/36/1/44) Grade 1 (mild retention): 11-20% at 4h Grade 2 (moderate retention): 21-35% at 4h Grade 3 (severe retention): 36-50% at 4h Grade 4 (very severe retention): >50% retention at 4h Electronically signed by: Chaitanya Solo MD 07/15/2024 12:32 PM [facility]
--- OUTSIDE RECORDS SUMMARY | 2024-07-15 08:18 | XMS_ITS | Encounter Summary ---
Author Organization [employer] Address [address] [facility] 7t [place] [address] Care Team Providers Care Consulting Practice Director Name Role Phone Mabel Ortiz MD Primary Care Provider [phone] Reason for Visit * Reason Onset Date Comments Nurse Triage 05/11/2024 Encounter Details Date Type Department Care Team ([facility] st Contact Info) Description 05/11/2024 Telephone [facility] [address] [place] [address] Mabel Ortiz MD [address] [place] [address] Nurse Triage Social History Tobacco Use Types [...] 3:07 PM EST Triage call [place] [id number]. Pt reports abdominal pain which comes and [...] down. Pt is advised to come to [facility] today open till 800pm or tomorrow [...] The caller accepted this outcome. Please contact (Estonian) documented in this encounter Plan of Treatment Not on file documented as of this encounter Visit Diagnoses Not on filedocumented in this encounter Additional Health Concerns Assessment Noted Time PHQ-9 Depression Total Score: 0 10/10/19 24 11:23 AM EDT documented as of this encounter Care Teams Consulting Practice Director Relationship Specialty Start Date End Date Mabel Ortiz MD [address] [place] [phone] PCP - General Family Medicine 05/27/13 documented as of this encounter
--- OUTSIDE RECORDS SUMMARY | 2024-07-15 08:19 | XMS_ITS | Encounter Summary ---
Author Organization [employer] Address [address] [facility] 7t [place] [address] Care Team Providers Care Freelance Recruiter Name Role Phone Mabel Ortiz MD Primary Care Provider [phone] Encounter Details Date Type Department Care Team ([facility] st Contact Info) Description 12/02/2023 Orders Only [facility] CH[facility] MED & PEDS [address] [place] [address] ProviderPamela MD Social History Tobacco Use Types [...] Procedure Name Priority Date/Time Associated Diagnosis Comments VITAMIN D,25-OH,TOTAL,IA Routine 06/25/2024 11:58 AM EST VITAMIN B12/FOLATE, SERUM PANEL Routine 06/25/2024 11:58 AM EST CBC WITH AUTO DIFFERENTIAL Routine 06/25/2024 11:58 AM EST LIPASE Routine 06/25/2024 11:58 AM EST COMPREHENSIVE METABOLIC PANEL Routine 06/25/2024 11:58 AM EST EMG Routine 11/19/2023 8:52 AM EDT documented in this encounter Results * Vitamin B12 (Cobalamin) and Folate Panel, Serum (06/25/2024 11:58 AM EST) Vitamin B12 591 200 - 900 pg/mL [facility] Comment:NORMAL 200-900 PG/ML INDETERMINATE 160-199 PG/ML DEFICIENT < 160 PG/ML Folate 7.8 > or = 4.0 ng/mL [facility] Comment:Reference Values:> o r = 4.0 ng/mL< 4.0 ng/mL suggests folate deficiency Methotrexate, aminopterin and folinic acid(leucovorin) are chemotherapeutic agents whose molecularstructures are similar to folate; therefore, the Architectfolate assay cannot be used for patients using these drugs. 06/25/2024 11:5 8 AM EST 06/25/2024 11:58 AM EST us Generic External Data Provider LAB BLOOD ORDERAB LES Final Result Performing Organization Address City/[facility]/ZIP Co de Phone Number [facility] [address] [place] [phone] * (ABNORMAL) Vitamin D, 25-Hydroxy, Total, Immunoassay (06/25/2024 11:58 AM EST) Vitamin D 25-OH Total 17.9(L) >30 ng/mL [facility] Comment:Health Based Referen ce Values*< 20 ng/mL Bmfiweyiy02-47 ng/mL Insufficient> 30 ng/mL Sufficient*Erick MANRIQUE. N Engl J Med. 2007;357:266-280Care must be taken in interpreting Vitamin D results fromdifferent laboratories and methodologies. Published datademonstrated that results from patients undergoinghemodialysis may show a negative bias when tested withvarious automated 25-OH vitamin D assays when compared toLC-MS/MS.When testing samples from patients whose predominant form ofVitamin D is Vitamin D2, such as patients receiving VitaminD2 supplementation, results that are subtherapeutic shouldbe confirmed with another method such as LC-MS/MS. 06/25/2024 11:5 8 AM EST 06/25/2024 11:58 AM EST us Generic External Data Provider LAB BLOOD ORDERAB LES Final Result Performing Organization Address [facility]/ZIP Co de Phone Number [facility] [address] [place] [phone] * Lipase (06/25/2024 11:58 AM EST) Lipase 35 8 - 78 U/L [facility] 06/25/2024 11:5 8 AM EST 06/25/2024 11:58 AM EST Generic External Data Provider LAB BLOOD ORDERAB LES Final Result Performing Organization Address City/[facility]/ZIP Co de Phone Number [facility] [address] [place] [phone] * (ABNORMAL) Comprehensive Metabolic Panel (06/25/2024 11:58 AM EST) Pathologist [facility] Sodium 138 135 - 145 mmol/L [facility] Potassium 4.0 3.3 - 5.1 mmol/L [facility] Chloride 110(H) 96 - 108 mmol/L [facility] Carbon Dioxide 22 22 - 29 mmol/L [facility] Anion Gap 10(L) 12 - 20 [facility] Urea Nitrogen (BUN) 12 9 - 16 mg/dL [facility] Creatinine, Serum 0.68 0.5 - 1.4 mg/dL [facility] Estimated Glomerular Filt Rate >60 [facility] Comment:Chronic Kidney Disea se: Estimated GFR < 60 mL/min/1.77y7Fvbyof Kidney Disease: Estimated GFR < 15 mL/min/1.73m2 Glucose 96 60 - 115 mg/dL [facility] Calcium 8.9 8.4 - 10.2 mg/dL [facility] Bilirubin, Total 0.4 0.0 - 1.0 mg/dL [facility] Aspartate Amino Transferase 22 5 - 31 U/L [facility] Alanine Aminotransferase 18 0 - 31 U/L [facility] Total Protein 7.2 6.5 - 8.0 g/dL [facility] Albumin Level 3.9 3.5 - 5.0 g/dL [facility] Alkaline Phosphatase 60 39 - 117 U/L [facility] 06/25/2024 11:5 8 AM EST 06/25/2024 11:58 AM EST us Generic External Data Provider LAB BLOOD ORDERAB LES Final Result [facility] [address] [place] [phone] * (ABNORMAL) CBC auto differential (06/25/2024 11:58 AM EST) Pathologist [facility] White Blood Count 8.4 4.8 - 10.8 X10*3/uL [facility] Red Blood Count 4.93 4.20 - 5.50 X10*6/uL [facility] Hemoglobin 13.4 12.0 - 16.0 g/dl [facility] Hematocrit 40.1 37.0 - 47.0 % [facility] Mean Corpuscular Volume 81.3 80.0 - 98.0 fL [facility] Mean Corpuscular Hemoglobin 27.2 27.0 - 33.0 pg [facility] Mean Corpuscular HGB Conc 33.4 31.0 - 35.0 g/dl [facility] Red Cell Distribution Width 13.4 11.0 - 16.0 % [facility] Platelet Count 290 160 - 400 X10*3/uL [facility] Mean Platelet Volume 11.1 9.4 - 12.3 fL [facility] Neutrophils Percent Auto 60.2 45 - 73 % [facility] Imm Gran Pct Auto 0.5(H) 0.0 - 0.4 % [facility] Lymphocytes Percent Auto 31.3 20 - 40 % [facility] Monocytes Percent Auto 6.6 2 - 11 % [facility] Eosinophils Percent Auto 0.8 0 - 4 % [facility] Basophils Percent Auto 0.6 0 - 2 % [facility] NRBC Pct Auto 0.0 0.0 - 0.2 /100WBC [facility] Neutrophils Absolute Auto 5.1 2.0 - 8.3 x10*3/uL [facility] Imm Gran Abs Auto 0.04(H) 0.00 - 0.03 X10*3/uL [facility] Lymphocytes Absolute Auto 2.6 1.2 - 4.9 X10*3/uL [facility] Monocytes Absolute Auto 0.6 0.1 - 1.2 X10*3/uL [facility] Eosinophils Absolute Auto 0.1 0.0 - 0.4 X10*3/uL [facility] Basophils Absolute Auto 0.1 0.0 - 0.2 X10*3/uL [facility] NRBC Abs Auto 0.000 0.0 - 0.012 X10*3/uL [facility] 06/25/2024 11:5 8 AM EST 06/25/2024 11:58 AM EST us Generic External Data Provider LAB BLOOD ORDERAB LES Final Result [facility] [address] [place] [phone] * EMG (11/19/2023 8:52 AM EDT) us Historical Provider NEUROLOGY ORDERABLES Kathryn l Result documented in this encounter Visit Diagnoses Not on filedocumented in this encounter Additional Health Concerns Assessment Noted Time PHQ-9 Depression Total Score: 0 10/10/19 24 11:23 AM EDT documented as of this encounter Care Teams Freelance Recruiter Relationship Specialty Start Date End Date Mabel Ortiz MD [address] [place] [phone] PCP - General Family Medicine 05/27/13 documented as of this encounter
--- OUTSIDE RECORDS SUMMARY | 2024-07-15 08:19 | XMS_ITS | Clinical Summary ---
Author Organization [employer] Address [address] [facility] 7 [place] [address] Care Team Providers Care Flight Control Tower Operator Name Role Phone Mabel Ortiz MD Primary Care Provider [phone] Allergies No known active allergies Medications naproxen [...] 90 tablet 3 5 06/25/19 25 Active Problems Problem Noted Date Diagnosed Date Chronic migraine without aur a without status migrainosus, not intractable 10/10/2023 Encounters Date Type Department Care Team Description 05/26/2024 Refill [facility] MED & PEDS [address] [place] [address] Mabel Ortiz MD 05/11/2024 Telephone [facility] MEDICINE [address] [place], [place] [phone] Mabel Ortiz MD Nurse Triage from Last [...] Name Priority Date/Time Associated Diagnosis Comments VITAMIN B12/FOLATE, SERUM PANEL Routine 06/25/2024 11:58 AM EST VITAMIN D,25-OH,TOTAL,IA Routine 06/25/2024 11:58 AM EST LIPASE Routine 06/25/2024 11:58 AM EST COMPREHENSIVE METABOLIC PANEL Routine 06/25/2024 11:58 AM EST CBC WITH AUTO DIFFERENTIAL Routine 06/25/2024 11:58 AM EST ZZZ HISTORICAL HEPATITIS C AB W/REFL TO HCV RNA, QN, PCR Routine 05/30/2020 9:09 AM EST HIV 1/2 ANTIGEN/ANTIBODY, FOURTH GENERATION W/RFL Routine 05/30/2020 9:09 AM EST LIPID PANEL, STANDARD Routine 05/30/2020 9:09 AM EST from Last 3 Months or Most Recently Relevant to Health Maintenance Results * (ABNORMAL) Vitamin D, 25-Hydroxy, Total, Immunoassay (06/25/2024 11:58 AM EST) Vitamin D 25-OH Total 17.9(L) >30 ng/mL [facility] Comment:Health Based Referen ce Values*< 20 ng/mL Jamadqhdy11-83 ng/mL Insufficient> 30 ng/mL Sufficient*Erick MANRIQUE. N [...] ORDERAB LES Final Result Performing Organization Address [facility] Co de Phone Number [facility] [address] [place] [phone] * Vitamin B12 (Cobalamin) and Folate Panel, Serum (06/25/2024 11:58 AM EST) Vitamin B12 591 200 - 900 pg/mL [facility] Comment:NORMAL 200-900 PG/ML INDETERMINATE 160-199 PG/ML DEFICIENT < 160 PG/ML Folate 7.8 > or = 4.0 ng/mL [facility] Comment:Reference Values:> o r = 4.0 ng/mL< 4.0 ng/mL suggests folate deficiency Methotrexate, aminopterin and folinic acid(leucovorin) are chemotherapeutic agents whose molecularstructures are similar to folate; therefore, the Architectfolate assay cannot be used for patients using these drugs. 06/25/2024 11:5 8 AM EST 06/25/2024 11:58 AM EST Generic External Data Provider LAB BLOOD ORDERAB LES Final Result Performing Organization Address [facility]/ZIP Co de Phone Number [facility] [address] [place] [phone] * (ABNORMAL) CBC auto differential (06/25/2024 11:58 AM EST) White Blood Count 8.4 4.8 - 10.8 X10*3/uL [facility] Red Blood Count 4.93 4.20 - 5.50 X10*6/uL [facility] Hemoglobin 13.4 12.0 - 16.0 g/dl [facility] Hematocrit 40.1 37.0 - 47.0 % [facility] Mean Corpuscular Volume 81.3 80.0 - 98.0 fL [facility] Mean Corpuscular Hemoglobin 27.2 27.0 - 33.0 pg [facility] Mean Corpuscular HGB Conc 33.4 31.0 - 35.0 g/dl [facility] Red Cell Distribution Width 13.4 11.0 - 16.0 % [facility] Platelet Count 290 160 - 400 X10*3/uL [facility] Mean Platelet Volume 11.1 9.4 - 12.3 fL [facility] Neutrophils Percent Auto 60.2 45 - 73 % [facility] Imm Gran Pct Auto 0.5(H) 0.0 - 0.4 % [facility] Lymphocytes Percent Auto 31.3 20 - 40 % [facility] Monocytes Percent Auto 6.6 2 - 11 % [facility] Eosinophils Percent Auto 0.8 0 - 4 % [facility] Basophils Percent Auto 0.6 0 - 2 % [facility] NRBC Pct Auto 0.0 0.0 - 0.2 /100WBC [facility] Neutrophils Absolute Auto 5.1 2.0 - 8.3 x10*3/uL [facility] Imm Gran Abs Auto 0.04(H) 0.00 - 0.03 X10*3/uL [facility] Lymphocytes Absolute Auto 2.6 1.2 - 4.9 X10*3/uL [facility] Monocytes Absolute Auto 0.6 0.1 - 1.2 X10*3/uL [facility] Eosinophils Absolute Auto 0.1 0.0 - 0.4 X10*3/uL [facility] Basophils Absolute Auto 0.1 0.0 - 0.2 X10*3/uL [facility] NRBC Abs Auto 0.000 0.0 - 0.012 X10*3/uL [facility] 06/25/2024 11:5 8 AM EST 06/25/2024 11:58 AM EST Generic External Data Provider LAB BLOOD ORDERAB LES Final Result Performing Organization Address [facility]/ZIP Co de Phone Number [facility] [address] [place] [phone] * Lipase (06/25/2024 11:58 AM EST) Lipase 35 8 - 78 U/L [facility] 06/25/2024 11:5 8 AM EST 06/25/2024 11:58 AM EST [employer] External Data Provider LAB BLOOD ORDERAB LES Final Result Performing Organization Address [facility] de Phone Number [facility] [address] [place] [phone] * (ABNORMAL) Comprehensive Metabolic Panel (06/25/2024 11:58 AM EST) Sodium 138 135 - 145 mmol/L [facility] Potassium 4.0 3.3 - 5.1 mmol/L [facility] Chloride 110(H) 96 - 108 mmol/L [facility] Carbon Dioxide 22 22 - 29 mmol/L [facility] Anion Gap 10(L) 12 - 20 [facility] Urea Nitrogen (BUN) 12 9 - 16 mg/dL [facility] Creatinine, Serum 0.68 0.5 - 1.4 mg/dL [facility] Estimated Glomerular Filt Rate >60 [facility] Comment:Chronic Kidney Disea se: Estimated GFR < 60 mL/min/1.96r1Qvbrvi Kidney Disease: Estimated GFR < 15 mL/min/1.73m2 Glucose 96 60 - 115 mg/dL [facility] Calcium 8.9 8.4 - 10.2 mg/dL [facility] Bilirubin, Total 0.4 0.0 - 1.0 mg/dL [facility] Aspartate Amino Transferase 22 5 - 31 U/L [facility] Alanine Aminotransferase 18 0 - 31 U/L [facility] Total Protein 7.2 6.5 - 8.0 g/dL [facility] Albumin Level 3.9 3.5 - 5.0 g/dL [facility] Alkaline Phosphatase 60 39 - 117 U/L [facility] 06/25/2024 11:5 8 AM EST 06/25/2024 11:58 AM EST Generic External Data Provider LAB BLOOD ORDERAB LES Final Result Performing Organization Address [facility] Co de Phone Number [facility] [address] [place] [phone] [phone] * HEPATITIS C AB W/REFL TO HCV RNA, QN, PCR (05/30/2020 9:09 AM EST) HEPATITIS C ANTIBODY NON-REACT KANE NON-REACT KANE [facility] INDEX 0.01 <1.00 [facility] Comment: ?? HCV antibody was non-reactive. There is no laboratory ?? evidence of HCV infection. ?? In most cases, no further action is required. However, if recent HCV exposure is suspected, a test for HCV RNA (test code 41960) is suggested. ?? For additional information please refer to http://education.[employer]Punch!/faq/XUK96r3 (This link is being provided for informational/ educational purposes only.) ?? 05/30/2020 9:09 AM EST us Mabel Ortiz MD HISTORICAL/NON ORDERABLE LABS Fi nal Result Performing Organization Address City/[facility]/ZIP Co de Phone Number [facility] [address] [place] [address], * HIV 1/2 ANTIGEN/ANTIBODY,FOURTH GENERATION W/RFL (05/30/2020 9:09 AM EST) [facility] HIV-1/2 ANTIGEN AND ANTIBODIES, 4TH GENERATION W/ REFLEX NON-REACT KANE NON-REACT KANE [facility] Comment: HIV-1 antigen and HIV-1/HIV-2 [...] ? For additional information please refer to http://[employer]/faq/ODC471 (This link is being provided for informational/ educational purposes only.) ? The performance of this assay has not been clinically validated in patients less than 2 years old. ?? 05/30/2020 9:09 AM EST us Mabel Ortiz MD LAB BLOOD ORDERABLES Final Resul t [facility] [address] [place] [address], * LIPID PANEL, STANDARD (05/30/2020 9:09 AM EST) [facility] Chol/HDLC Ratio 2.6 <5.0 (calc) [facility] [...] ?? LDL-C is now calculated using the Arsalan-Banks ?? calculation, which is a validated novel method providing ?? better accuracy than the Friedewald equation in the ?? estimation of LDL-C. ?? Arsalan KIM et al. ARLET. 2013;310(19): 1332-5232 ?? (http://education.[employer].Punch!/faq/EEX985) Non-HDL Cholesterol 107 <130 mg/dL (calc) [facility] Comment: For patients with diabetes plus 1 major ASCVD risk ?? factor, treating to a non-HDL-C goal of <100 mg/dL ?? (LDL-C of <70 mg/dL) is considered a therapeutic ?? option. Triglycerides 76 <150 mg/dL [facility] 05/30/2020 9:09 AM EST us Mabel Ortiz MD LAB BLOOD ORDERABLES Final Resul t [facility] [address] from Last 3 Months or Most Recently Relevant to Health Maintenance Insurance [employer] Care Teams Flight Control Tower Operator Relationship Specialty Start Date End Date Mabel Ortiz MD [address] [place] [address] PCP - General Family Medicine 05/27/13
--- OUTSIDE RECORDS SUMMARY | 2024-07-15 08:19 | XMS_ITS | Clinical Summary ---
Author Organization [facility] [address] [place] [address] [place] [phone] Phone Care Team Providers Care Auto Design Checker Name Role Phone Mabel Ortiz MD Primary Care Provider [phone] Allergies No known active allergies Medications NAPROXEN ORAL Take by mouth. A ctive omeprazole (PriLOSEC) [address] capsule Take 20 mg by mouth daily. Active pantoprazole (PROTONIX) 40 mg EC tablet Take 40 mg by mouth 2 Times Daily. 05/15/20 20 Active triamcinolone acetonide (KENALOG-40) 40 mg/mL injection 1 mL by Other route once for 1 dose. 10/24/19 24 Active cholecalcifero l (VITAMIN D-3) 250 mcg (10,000 unit) capsule TAKE 1 CAPSULE (250 MCG) BY MOUTH ONCE WEEKLY. 01/05/20 24 Active ibuprofen (ADVIL,MOTRIN) 800 mg tablet Take 1 tablet (800 mg total) by mouth. 10/07/19 24 Active nicotine (NICODERM CQ) 7 mg/[address] 1 PATCH ON THE SKIN 1 TIME EACH DAY AT THE SAME TIME. 09/24/19 24 Active SUMAtriptan (IMITREX) 25 mg tablet PLEASE SEE ATTACHED FOR DETAILED DIRECTIONS 09/24/19 24 Active senna 8.6 mg tablet Take 1 tablet (8.6 mg total) by mouth. at bedtime. 04/25/20 23 Active topiramate (TOPAMAX) 25 mg tablet TAKE 1 TABLET (25 MG) BY MOUTH EVERY 12 (TWELVE) HOURS. 12/29/19 24 Active medroxyPROGEST ERone (PROVERA) 10 mg tablet Take 1 tablet (10 mg total) by mouth 2 (two) times a day. 60 each 06/24/19 25 025 Active norethindrone (AYGESTIN) 5 mg tablet Take 1 tablet (5 mg total) by mouth 1 (one) time each day. 30 each 2 04/13/20 24 025 Discontinued Hospital, Clinic, or Other Facility Administered Medication Ordered Dose Route Frequency Start Date End Date Status ibuprofen (ADVIL,MOTRIN) tablet 800 mgIndications:Abnormal uterine bleeding (AUB) 800 mg oral Once 06/24/2024 Ac tive Active Problems Problem Noted Date Diagnosed Date Varicose veins of legs 01/13/2019 Vitamin D deficiency 01/13/2019 Encounters Date Type Department Care Team Description 06/29/2024 Telephone Obstetrics and Gynecology - [place] [id number] [place] [phone] Stephanie Lopez RN 06/24/2024 10:20 AM EST Office Visit Obstetrics and Gynecology - [place] [address] [place] [phone] Aurora Mcclellan, PA Abnormal uterine bleeding (AUB) (Primary Dx) from Last 3 Months Surgical History Surgery Date Site/Laterality Comments SECTION PROCEDURE: HISTORICAL TUBAL LIGATION PROCEDURE: HISTORICAL TUBAL LIGATION BREAST SURGERY 2020 PROCEDURE: [place] BREAST AUGMENTATION WITH IMPLANT; COM[place] BEL[place] ABDOMINOPLASTY 2020 PROCEDURE: HISTORICAL TUMMY TUCK; COMMENT: In [place] Medical History Medical History Date Comments Varicose [...] drink = 0.6 oz pur e alcohol) Comments No Sex and Gender Information Value Date Recorded Sex Assigned at Not on file Legal Sex Female 5:45 AM EST Gender Identity Not on file Sexual Orientation Not on file Obstetrics History Para Term AB IAB SAB Ectopic Multiple Livin g Live Births 2 2 2 2 2 Date Outcome GA Total Labor Labor/2nd/3rd Weight Sex Type Anes PTL Dayana A1 A5 Name Clin 2003 Term F CS-Un spec Living Comments:[place] 2013 Term F Vag-S pont Living Comments:[facility] Last Filed Vital Signs Vital Sign [...] Care Team (Late st Contact Info) Description 07/17/2024 11:15 AM EST Office Visit Orthopedic Surgery - [place] [address] [phone] Chari Alas PA [address] [phone] 07/27/2024 10:45 AM EDT Office Visit Obstetrics and Gynecology [address] [phone] Thu Gonzales MD [address] [place] [address] 08/03/2024 1:30 PM EDT Office Visit Obstetrics & Gy[facility]cology - [facility] [address] [place] [phone] Vanessa Russell, ERIN [address] [place] [address] Health Maintenance Due Date Last Done Comments Breast Cancer Screening 1984 Hepatitis B Vaccines (1 of 3 - 19+ 3-dose series) 2003 Social Influencers of Health Screening 04/28/2022 COVID-19 Vaccine ( season) 2024 04/25/2021, 10/03/2020, 08/31/2020 Influenza Vaccine (#1) 2024 , 03/21/2022, 03/14/2021, Additional history exists Depression Screening [...] patient's age to complete this topic Meningococcal B Vacine Aged Out No lo nger eligible based on patient's age to complete [...] Procedure Name Priority Date/Time Associated Diagnosis Comments TISSUE EXAM Routine 06/24/2024 12:56 PM EST Abnormal uterine bleeding (AUB) NM ENDOMETRIAL SAMPLING W/WO ENDOCERVICAL SAMPLING W/O CERVICAL DILATION Routine 06/24/2024 11:11 AM EST Abnormal uterine bleeding (AUB) HPV Routine 05/06/2023 HEPATITIS C SCREENING Routine 01/26/2022 HIV SCREENING Routine 01/26/2022 from Last 3 Months or Most Recently Relevant to Health Maintenance Results * Tissue Exam (06/24/2024 12:56 PM EST) Final Diagnosis Endometrial biopsy: Menstrual endometrium No endometrial hyperplasia or neoplasm identified 06/26/2024 11:55 AM [facility] Clinical Information Abnormal uterine bleeding (AUB) (N93.9) 06/26/2024 11:55 AM [facility] Gross Description A. Endometrium, biopsy: Labeled EMB, Endo . Received in formalin is an approximately 3.0 x 2.8 x 0.2 cm aggregate of soft to mucoid, walters-red to brown, cylindrical tissue fragments and clotted blood, which is wrapped in paper and submitted in toto in two cassettes, multiple pieces, x2. Please note: Small tissue fragments may not survive processing. dvb/AL 06/26/2024 11:55 AM [facility] Disclaimer Unless otherwise specified, all tissue is 10% NB formalin fixed and paraffin embedded. 06/26/2024 11:55 AM [facility] Tissue Endometrial structure / Unknown Non-blood Collection / Unknown 06/24/2024 12:56 PM EST 06/24/2024 12:56 PM EST us [facility] BLOCK LAB PATHOLOGY ORDERABLES Fin al Result [facility] [address] [place] [address], * [place] ENDOMETRIAL SAMPLING W/WO ENDOCERVICAL SAMPLING W/O CERVICAL DILATION (06/24/2024 11:11 AM EST) Aurora Lugo PA - 06/24/2024 11:11 AM EST MCKAYLA [...] complications: yes ?? [facility] IN CLINIC/BEDSIDE ORDERABLES Final Result * Cervical Cancer Screening: HPV (05/06/2023) Pathologist [facility] Cervical Cancer Screening: HPV Abstracted, negative Historical Provider HEALTH MAINTENANCE Final Result * HIV Screening (01/26/2022) [facility] HIV Screening Abstracted [facility] Provider HEALTH MAINTENANCE Final Result * Hepatitis C Screening (01/26/2022) [facility] Hepatitis C Screening Abstracted Historical Provider HEALTH MAINTENANCE Final Result from Last 3 Months or Most Recently Relevant to Health Maintenance Insurance [place]ICA[place] Care Teams Auto Design Checker Relationship Specialty Start Date End Date Mabel Ortiz MD [address] [place] [id number] PCP - General 06/21/16
--- OUTSIDE RECORDS SUMMARY | 2024-07-15 08:19 | XMS_ITS | Encounter Summary ---
Author Organization [facility] Address [address] [place] [address] Care Team Providers Care Eyeglass Frames Polisher Name Role Phone Mabel Ortiz MD Primary Care Provider [phone] Reason for Visit * Reason Comments Abnormal Bleeding Encounter Details Date Type Department Care Team ([facility] st Contact Info) Description 06/24/2024 10:20 AM EST Office Visit Obstetrics and Gynecology - [place] [address] [place] [address] Aurora Mcclellan PA [address] [place] [address] Abnormal uterine bleeding (AUB) (Primary Dx) Social [...] on file Sexual Orientation Not on file documented as of this [...] in this encounter Ordered Prescriptions Prescription Sig Dispense Quantity Refills Last Filled Start Date End Date medroxyPROGESTERon e (PROVERA) 10 mg tablet Take 1 tablet (10 mg total) by mouth 2 (two) times a day. 60 each 06/24/2024 07/24/2024 documented in this encounter Progress Notes * Auroar Mcclellan, MCKAYLA - 06/24/2024 10:20 AM ESTAssociated Order(s): Endometrial [...] abdominal pain, N/V/D/C. Denies changes in appetite. ROUND KILN DRAWER: See HPI MUSCULOSKELETAL: Denies myalgias, arthralgias SKIN: [...] appropriate demeanor Pelvic: Exam chaperoned by medical or surgical instrument maker. Speculum used. External Genitalia: Normal architecture, without [...] in the dorsal lithotomy position with medical or surgical instrument maker present and speculum was inserted into the [...] AM EST Office Visit Orthopedic Surgery - [place] [address] [facility] [address] [place] [address] Chari Alas PA [address] [phone] 07/27/2024 10:45 AM EDT Office Visit Obstetrics and Gynecology [address] [phone] Thu Gonzales MD [address] [place], [place] 08/03/2024 1:30 PM EDT Office Visit Obstetrics & Gynecology - [address] [phone] Vanessa Russell, [facility] [address] [place] [address] documented as of this encounter Procedures Procedure Name Priority Date/Time Associated Diagnosis Comments TISSUE EXAM Routine 06/24/2024 12:56 PM EST Abnormal uterine bleeding (AUB) [place] ENDOMETRIAL SAMPLING W/WO ENDOCERVICAL SAMPLING W/O CERVICAL DILATION Routine 06/24/2024 11:11 AM EST Abnormal uterine bleeding (AUB) documented in this encounter Results * Tissue Exam (06/24/2024 12:56 PM EST) Final Diagnosis Endometrial biopsy: Menstrual endometrium No endometrial hyperplasia or neoplasm identified 06/26/2024 11:55 AM [facility] Clinical Information Abnormal uterine bleeding (AUB) (N93.9) 06/26/2024 11:55 AM [facility] Gross Description A. Endometrium, biopsy: Labeled [...] not survive processing. dvb/AL 06/26/2024 11:55 AM EST [facility] Disclaimer Unless otherwise specified, all tissue is 10% NB formalin fixed and paraffin embedded. 06/26/2024 11:55 AM EST [facility] Tissue Endometrial structure / Unknown Non-blood Collection / Unknown 06/24/2024 12:56 PM EST 06/24/2024 12:56 PM EST us [facility] PATHOLOGY ORDERABLES Fin al Result [facility] [address] [place] [address], * [place] ENDOMETRIAL SAMPLING W/WO ENDOCERVICAL SAMPLING W/O CERVICAL [...] procedure well with no complications: yes ?? us [facility] BLOCK IN CLINIC/BEDSIDE ORDERABLES Final Result documented in this encounter Visit Diagnoses Diagnosis [...] Date ibuprofen (ADVIL,MOTRIN) tablet 800 mg 1 02 /09/2024 documented in this encounter Care Teams Eyeglass Frames Polisher Relationship Specialty Start Date End Date Mabel Ortiz MD [address] [place] [address] PCP - General 06/21/16 documented as of this encounter
--- OUTSIDE RECORDS SUMMARY | 2024-07-15 08:19 | XMS_ITS | Encounter Summary ---
Author Organization [facility] Address [address] [place] [address] Care Team Providers Care Agricultural Education Teacher Name Role Phone Mabel Ortiz MD Primary Care Provider [phone] Encounter Details Date Type Department Care Team (Late Contact Info) Description 06/29/2024 Telephone Obstetrics and Gynecology [address] [phone] Stephanie Lopez, RN Social History Tobacco Use Types Packs/Day Years Used Date Smoking Tobacco: Former Cigarettes Q uit: 11/18/2023 Smokeless Tobacco: Never Alcohol Use Standard Drinks/Week Comments Yes 0 (1 standard drink = 0.6 oz pur e alcohol) Comments No Sex and Gender Information Value Date Recorded Sex Assigned at Not on file Legal Sex Female 5:45 AM EST Gender Identity Not on file Sexual Orientation Not on file documented as of this encounter Progress Notes * Stephanie Lopez RN - 06/29/2024 11:10 AM EST [facility] hand i thermal cutter #[id number] Pt informed of EMB results and scheduled appt with Dr Gonzales on 07/27/24 @ 1045am. Pt understands and appt for 07/09/24 with PIPE Russell cancelled. documented in this encounter Plan of Treatment Upcoming Encounters Date Type Department Care Team (Late Contact Info) Description 07/17/2024 11:15 AM EST Office Visit Orthopedic Surgery - [place] [address] [facility] [address] [place] [address] Chari Alas PA [address] [facility] [place] [address] [place] [address] 07/27/2024 10:45 AM EDT Office Visit Obstetrics and Gynecology - [address] [phone] Thu Gonzales MD [address] [place] [address] 08/03/2024 1:30 PM EDT Office Visit Obstetrics & Gynecology - [address] [phone] Vanessa Russell, [facility] [address] [place] [address] documented as of this encounter Visit Diagnoses Not on filedocumented in this encounter Care Teams Agricultural Education Teacher Relationship Specialty Start Date End Date Mabel Ortiz MD [address] [place] [address] PCP - General 06/21/16 documented as of this encounter
== END ==
LOC: HO.NUCMED 08:04
PROVIDERS: PCP Student in an Organized Health Care Education/Training Program; Visit Provider Internal Medicine Gastroenterology
DX: R68.81 Early satiety (principal)
CPT/HCPCS: 78264; A9541

== ENCOUNTER → 2024-07-15 08:05 | Outpatient (BNV) | payer MEDICAID, SELFPAY | PROVIDERS: PCP Student in an Organized Health Care Education/Training Program; Visit Provider Radiology Diagnostic Radiology | DX: R68.81 Early satiety (principal) | CPT/HCPCS: 78264 ==

== ENCOUNTER → 2024-08-13 10:42 | Outpatient (BNVA) | payer MEDICAID, SELFPAY | PROVIDERS: PCP Student in an Organized Health Care Education/Training Program; Visit Provider Internal Medicine Gastroenterology ==

== ENCOUNTER 2024-11-10 08:57 | Outpatient (REF) | payer MEDICAID, SELFPAY ==
--- OUTSIDE RECORDS SUMMARY | 2024-11-04 05:30 | XMS_ITS | Continuity of Care Document ---
Author Organization [facility] Address [address] [place] [address] Dr [address] [place] [phone] Phone Care Team Providers Care Machine Operator Packaging Name Role Phone Moustapha BUSTILLOS, CALI RANGEL Robert Unavailable U navailable Allergies, Adverse Reactions, Alerts Substance Reaction Status Criticality No Known Allergies Active No Inform ation Procedures Procedure Date Office/Oupt E&M New Pt 30 Mins- CT & [place] Duplex Scan-extrem Veins; Comp- CT & [place] No Charge For Services Sngl/mx Inj Scleros-veins; Haas Advance Directives Directive Yes / No Effective Date File Name No Information Encounters Encounter Description Practice Location Reason(s) For Visit Diagnoses Date Provider Providers Copied on Encounter Office/Oupt E&M New Pt 30 Mins- [place] & [place] [facility], [address] [place] [address] Dr [address], [place], [id number], [place] tel:[phone] CVR - [place] - [place] Pain in right lower legPain in left lower legLocalized edemaCramp and spasmRestless legs syndromeVenous insufficiency (chronic) (peripheral) Moustapha BUSTILLOS, CALI RANGEL. [address] [facility] [address], [place], [place], [id number] , [place]. tel:[phone] Referring Provider: Mabel Ortiz MD, [address], [address]. tel:[phone] [facility], [address] [place] [address] Dr [address] [address], [id number], [place] tel:[phone] CVR - [place] - [place] Chronic venous hypertension (idiopathic) with other complications of bilateral lower extremity 5 Moustapha BUSTILLOS, RVT, CALI Tavares. [address] [place] [address], [place], [place], [id number] , [place]. tel:[phone] Referring Provider: Mabel Ortiz MD, [address], [address]. tel:[phone] [facility], [address] [place] [address] [address] [facility] [address], [id number], [place] tel:[phone] CVR - [place] - [place] Spider Veins - (Telangiectasia ) Aug- 3 Neeraj BUSTILLOS FACS RVT CALI Felix. [address] [place] [address], [place], [address], [place]. tel:[phone] Referring Provider: Mabel Ortiz MD, [address], [address]. tel:[phone] [facility], [address] [place] [address] Dr [address] [facility] [address], [id number], [place] tel:[phone] CVR - [place] - [place] Spider Veins - (Telangiectasia ) 0 3 Mollwalter Sanchez . [address] [place] [address], [place], [place], [id number] , [place]. [phone] Referring Provider: Mabel Ortiz MD, [address], [address]. tel:[phone] Family History Family Member Type Diagnosis Age At Onset No Information Payers Payer name Insurance type Covered constitution party ID Authorriri tiescobar(s) Medical Assistance ADRIANA MOMIN [id number] Social History Type Description Quantity Date Captured Comments Alcohol Use Details Unknown Caffeine Use Details Unknown Tobacco Use Status No Information Smoking Status Former Smoker Non-Smoking Tobacco Use Details : No Details Available : No Details Available Sex Female Vital Signs Date / Time: Height Weight BMI Pulse Rate Blood Pressure Temperature Respiratory Rate Body Surface Area Head Circumference Head Circ. Percentile Wt./[place]. Percentile BMI percentile Pulse Ox Inhaled Ox 77.110 kg (170.00 lbs) 32.1 4 kg/m eter (2) 120/80 mm[Hg] Chief Complaint And Reason For Visit No Information Reason For Referral Reason For Referral No Information Plan Of Treatment Date Type Action Status Goal Diet education completed Goal Tobacco cessation counseling completed Referral Ordered: Weight management: Referral to physician timeframe: 3 Months (related to Body mass index (BMI) 32.0-32.9, adult) ordered History Of Present Illness Encounter Date Complaint History Of Prese nt Illness No Information Functional Status Date Functional Assessmen t No Information Instructions Date Instruction Additional Infor mation Patient education booklet given Related to Pain in right lower leg Compression stocking usage as conservative measure Related to Pain in right lower leg Diet education Related to Body mass index (BMI) 32.0-32.9, adult Giving Encouragement to exercise Related to Body mass index (BMI) 32.0-32.9, adult Lifestyle education Related to B francis mass index (BMI) 32.0-32.9, adult Assessments Type Assessment Date No Information Patient Care Teams Name Effective Dates (start - stop) Status Members No Information
[2024-11-10 14:30] LABS: Alanine Aminotransferase 13 U/L (0-31); Albumin Level 4.1 g/dL (3.5-5.0); Alkaline Phosphatase 59 U/L (39-117); Anion Gap 10 (12-20); Aspartate Amino Transferase 18 U/L (5-31); Bilirubin Direct 0.2 mg/dL (0.0-0.5); Bilirubin Total 0.5 mg/dL (0.0-1.0); Blood Urea Nitrogen 12 mg/dL (9-16); Calcium 8.7 mg/dL (8.4-10.2); Carbon Dioxide 26 mmol/L (22-29); Chloride 109 mmol/L (96-108); Cholesterol 168 mg/dL (<200); Estimated Glomerular Filt Rate > 60; Glucose Random 83 mg/dL (60-115); HDL Cholesterol 49 mg/dL (>40); LDL Cholesterol Calculated 103 mg/dL (<100); Potassium 3.9 mmol/L (3.3-5.1); Sodium 141 mmol/L (135-145); Total Protein 6.9 g/dL (6.5-8.0); Triglycerides 82 mg/dL (<150)
== END 2024-11-10 08:58 | disposition home or self-care (01) ==
LOC: HO.CHCLDS 08:57
PROVIDERS: Visit Provider Student in an Organized Health Care Education/Training Program
DX: I73.9 Peripheral vascular disease, unspecified (principal)
CPT/HCPCS: 36415; 80048; 80061; 80076

== ENCOUNTER 2025-01-04 09:43 | Outpatient (REF) | payer MEDICAID, SELFPAY ==
--- OUTSIDE RECORDS SUMMARY | 2020-08-15 07:30 | XMS_ITS | Continuity of Care Document ---
Author Organization [facility] Address [address] [place] [address] [address] [place] [address] Phone Care Team Providers Care Mill Control Operator Name Role Phone Rosalinda BUSTILLOS, Familia Unavailable Unavailabl e Procedures Procedure Date Sngl/mx Inj Scleros-veins; [place] - [place] Advance Directives Directive Yes / No Effective Date File Name No Information Encounters Encounter Description Practice Location Reason(s) For Visit Diagnoses Date Provider Providers Copied on Encounter [facility], [address] [place], [place] [address], [place], [place], [id number], tel:[phone] [place] - [place] - [place] [facility] - (Telangiect noelle) Rosalinda Barbosa. [address], [address], [place], [address], . tel:[phone] Referring Provider: Familia Tellez MD F, [address], [place], [place], [facility]. tel:[phone] Family History Family Member Type Diagnosis Age At Onset Mother Problem (finding) Diabetes mellitus Father Problem (finding) Varicose Veins Mother Problem (finding) Bleeding disorder Mother Problem (finding) Hypertension Sister Problem (finding) Varicose Veins Payers Payer name Insurance type Covered green party ID Authoriza tion(s) Self Pay 09 Social History Type Description Quantity Date Captured Comments Alcohol Use Details No Caffeine Use Details Unknown Tobacco Use Status No Information Smoking Status Former smoker Non-Smoking Tobacco Use Details : No Details Available : No Details Available Sex Female Chief Complaint And Reason For Visit No Information Reason For Referral Reason For Referral No Information History Of Present Illness Encounter Date Complaint History Of Prese nt Illness Spider Veins Functional Status Date Functional Assessmen t No Information Instructions Date Instruction Additional Infor mation No Information Assessments Type Assessment Date No Information Patient Care Teams Name Effective Dates (start - stop) Status Members No Information
--- NOTE | ~2025-01-04 | MM_ITS ---
EXAMINATION: MM SCREENING DIGITAL BREAST TOMOSYNTHESIS, BILATERAL CLINICAL INFORMATION: Screening. Asymptomatic. COMPARISON: None. This is a baseline study. TECHNIQUE: Digital breast tomosynthesis is performed in both the craniocaudal and mediolateral oblique views along with computer-aided detection (CAD). Images with implants and displaced implant views were obtained. FINDINGS: BREAST COMPOSITION: There are scattered areas of fibroglandular density (ACR BI-RADS breast composition Category b). BILATERAL BREASTS: Bilateral retropectoral silicone implants are mammographically intact. No significant masses, suspicious calcifications or other abnormalities are seen in either breast. MM/MM tomosynthesis screen imp BI IMPRESSION: BILATERAL BREASTS: Benign, no mammographic evidence of malignancy. Normal interval follow-up is recommended in 12 months. ASSESSMENT: BI-RADS 2 - Benign Findings RECOMMENDATION: Routine annual mammography screening. FOLLOW-UP: 1 year F/U This examination should not preclude the clinical evaluation of a suspicious palpable abnormality. This patient's information was entered into a reminder system with a target due date for their next mammogram. Electronically signed by: Angy Mccoy MD 01/05/2025 09:01 PM EDT
--- OUTSIDE RECORDS SUMMARY | 2025-01-04 10:24 | XMS_ITS | Encounter Summary ---
Author Organization [facility] Address [address] [facility] [address] [place] [address] Care Team Providers Care Buttonhole Maker Hand Name Role Phone Mabel Ortiz MD Primary Care Provider [phone] Reason for Visit * Reason Onset Date Comments Nurse Triage 05/11/2024 Encounter Details Date Type Department Care Team (Late st Contact Info) Description 05/11/2024 Telephone [facility] [address] [place] [address] Mabel Ortiz MD [address] [place], [place] [phone] Nurse Triage Social History Tobacco Use Types [...] Female 03/19/2022 10:21 AM EDT Sexual Orientation Straight 11/04/2024 9: 33 PM EDT documented as of this encounter Miscellaneous Notes * Telephone Encounter - Rebecca Gamble RN - 05/11/2024 3:07 PM EST Triage call with [facility] [place] [id number]. Pt reports abdominal pain which comes and [...] Pt is advised to come to [facility] today open till 800pm or tomorrow morning [...] become worse * Telephone Encounter - Kathryn Garciago - 05/11/2024 2:12 PM EST Symptoms: Diarrhea, Nausea. (No Vomiting since saturday morning) Outcome: Schedule an urgent appointment (within 4 hours) or talk to a nurse or provider soon Reason: Can't drink anything The caller accepted this outcome. Please contact (Hebrew) documented in this encounter Plan of Treatment Not on file documented as of this encounter Visit Diagnoses Not on filedocumented in this encounter Additional Health Concerns Assessment Noted Time PHQ-9 Depression Total Score: 0 10/10/19 24 11:23 AM EDT documented as of this encounter Care Teams Buttonhole Maker Hand Relationship Specialty Start Date End Date Mabel Ortiz MD [address] [place] [address] PCP - General Family Medicine 05/27/13 documented as of this encounter
--- OUTSIDE RECORDS SUMMARY | 2025-01-04 10:24 | XMS_ITS | Clinical Summary ---
Author Organization [facility] [address] [place] [address] [place] [phone] Phone Care Team Providers Care Ortho/Prosthetic Aide Name Role Phone Mabel Ortiz MD Primary Care Provider [phone] Allergies No known active allergies Medications omeprazole (PriLOSEC) [address] capsule Take 1 capsule (20 mg total) by mouth 2 (two) times a day. Active cholecalciferol (VITAMIN D-3) 250 mcg (10,000 unit) capsule TAKE 1 CAPSULE (250 MCG) BY MOUTH ONCE WEEKLY. 4 Active SUMAtriptan (IMITREX) 25 mg tablet PLEASE SEE ATTACHED FOR DETAILED DIRECTIONS 4 Active senna 8.6 mg tablet Take 1 tablet (8.6 mg total) by mouth. at bedtime. 3 Active topiramate (TOPAMAX) 25 mg tablet TAKE 1 TABLET (25 MG) BY MOUTH EVERY 12 (TWELVE) HOURS. 4 Active oxyCODONE (OXY-IR) 5 mg immediate release capsule Take 1 capsule (5 mg total) by mouth every 6 (six) hours if needed for severe pain. Max Daily Amount: 20 mg 10 capsule 5 Active Active Problems Problem Noted Date Diagnosed Date Carpal tunnel syndrome 07/27/2024 Chronic migraine without aur a without status migrainosus, not intractable 10/10/2023 Varicose veins of legs 01/13/2019 Vitamin D deficiency 01/13/2019 Resolved Problems Problem Noted Date Diagnosed Date Resolved Date Menorrhagia with irregular cycle 07/27/2024 10/14/2024 Assessment & Plan (07/27/2024 12:11 PM EDT): Pt was counseled re: options for treatment of her symptoms including levonorgestrel IUD, ablation, and hysterectomy. I reviewed the risks, benefits, and rates of amenorrhea. She was most interested in hysterectomy. We discussed TRACY CAST. Would leave ovaries in place. Briefly discussed risks of surgery and expected recovery time. I explained I will not be here beyond early October and thus she could have it done prior or see Dr. Garibay for consultation thereafter. She voiced understanding. She was informed that she should hear back in 1-2 weeks with an appointment date. If not, she should call back to our office and inquire on getting this arranged. She voiced understanding and agreed. She will continue with Provera for now as she has had no improvement on other methods in the past and bleeding is only intermittent. I asked her to have her CBC and TSH checked on the way out. Encounters Date Type Department Care Team Description 12/10/2024 Telephone Obstetrics and Gynecology - [address] [phone] Aurora Mcclellan PA Letter for School/Work 12/10/2024 Telephone Obstetrics and Gynecology - [address] [phone] Aurora Mcclellan PA Letter for School/Work 11/18/2024 2:00 PM EDT Office Visit Obstetrics and Gynecology - [address] [phone] Aurora Mcclellan PA Postop check (Primary Dx); Status post hysterectomy 11/18/2024 Telephone Obstetrics and Gynecology - [address] [phone] Aurora Mcclellan PA Forms/questionnaires 11/03/2024 2:00 PM EDT Office Visit Obstetrics and Gynecology [address] [phone] Aurora Mcclellan PA Postop check (Primary Dx); Status post hysterectomy 10/19/2024 Telephone Obstetrics and Gynecology - [address] [phone] Thu Gonzales MD Post-op 10/14/2024 7:30 AM EDT - 10/14/2024 9:30 AM EDT Surgery [facility] OR [address] [place] [phone] Thu Gonzales MD DAVINCI TOTAL HYSTERECTOMY, BILATERAL SALPINGECTOMY, CYSTOSCOPY [13008 (CPT )] 10/14/2024 7:29 AM EDT Anesthesia Event [facility] OR [address] [place] [phone] Tai Petersen MD Couture, Alison, NIC 10/14/2024 5:50 AM EDT - 10/14/2024 12:48 PM EDT Hospital Encounter [facility] [place] [address] [place] [phone] Thu Gonzales MD Menorrhagia with irregular cycle Discharge Disposition: Home or Self Care from Last 3 Months Immunizations Name Administration Dates Next Due Influenza Quadravalent, MDCK , 0.5ml, preservative free (Flucelvax) 6mo and older 03/21/2022 Influenza Quadrivalent, 0.5m l, preservative free (Fluarix; FluLaval; Fluzone) ages 6mo and older (Afluria) 3yo and older 03/04/2023,03/14/2021,03/09/2020 Influenza Quadrivalent, with preservative (Fluzone; Afluria) 6mo and older 03/10/2019,03/05/2018,03/25/2017,2015,02/03/2015 Influenza trivalent, with preservative (Fluzone; Afluria) 6mo and older 02/23/2014,05/06/2013 MMR, measles mumps and rubel la Live (Priorix; M-M-R II) 12mo and older 11/25/2013 Tdap Tetanus diptheria acell ular pertussis (Boostrix; Adacel) 7yo and older 03/28/2017,09/03/2013 Surgical History Surgery Date Site/Laterality Comments SECTION TUBAL LIGATION BREAST SURGERY 2020 AUGMENTATION WITH IMPLANT in [place] BELT ABDOMINOPLASTY 2020 In [place] CHOLECYSTECTOMY HYSTERECTOMY TOTAL CERVIX REMOVED 09/17/2024 - 10/17/2024 N/A bilateral salpingectomy; path benign Medical History Medical History Date Comments Varicose veins of legs 01/13/2019 DX:Varico se veins of legs Vitamin D deficiency 01/13/2019 DX:Vitamin D deficiency GERD (gastroesophageal reflux disease) Migraines Family History Medical History Relation Name Comments [...] drink = 0.6 oz pur e alcohol) socially Interpersonal Safety Answer Date Record ed Physical Abuse 10/14/2024 Verbal Abuse 10/14/2024 Comments No Sex and Gender Information Value Date Recorded Sex Assigned at Not on file Legal Sex Female 5:45 AM EST Gender Identity Not on file Sexual Orientation Not on file Obstetrics History Para Term AB IAB SAB Ectopic Multiple Livin g Live Births 2 2 2 0 0 0 0 0 0 2 2 Date Outcome GA Total Labor Labor/2nd/3rd Weight Sex Type Anes PTL Dayana A1 A5 Name Clin 2003 Term F CS-Un spec Living Comments:[place] 2013 Term F Vag-S pont Living Comments:[facility] Last Filed Vital Signs Vital Sign Reading Time Taken Comments Blood Pressure 104/61 11/18/2024 2:02 PM EDT Pulse 80 11/18/2024 2:02 PM EDT Temperature 36.8 C (98.2 F) 10/14/2024 11:40 AM EDT Respiratory Rate 12 11/18/2024 2:02 PM EDT Oxygen Saturation 97% 10/14/2024 11:40 AM EDT Inhaled Oxygen Concentration - - Weight 77.6 kg (171 lb) 11/18/2024 2:02 PM EDT Height 160 cm (5' 3 ) 11/18/2024 2:02 PM EDT Body Mass Index 30.29 11/18/2024 2:02 PM EDT Plan of Treatment Health Maintenance Due Date Last Done Comments Breast Cancer Screening 1984 Hepatitis B Vaccines (1 of 3 - 19+ 3-dose series) 2003 Social Influencers of Health Screening 04/28/2022 COVID-19 Vaccine ( season) 2024 04/25/2021, 10/03/2020, 08/31/2020 Depression Screening 05/20/2024 Influenza Vaccine (#1) 2025 , 03/21/2022, 03/14/2021, Additional history exists DTaP,Tdap,and Td Vaccines (3 - Td or Tdap) 03/28/2027 03/28/2017, 09/03/2013 Cervical Cancer Screening: HPV 05/06/2028 05/06/2023 Cholesterol Screening (Lipid Panel) 11/10/2029 11/10/2024, 05/30/2020 MMR Vaccines Aged Out 11/25/2013 No longer [...] age to complete this topic Meningococcal B Vaccine Aged Out No l onger eligible based on patient's age to complete this topic Pneumococcal Vaccine: Pediatrics (0 to 5 Years) and At-Risk Patients (6 to 49 Years) Aged Out No longer eligible based on patient's age to complete this topic RSV Immunization Patients Under 20 months Aged Out No longer eligible based on patient's age to complete this topic Varicella Vaccines Aged Out No longer eligible based on patient's age to complete this topic Medical Devices Implanted Type Area Vinyl Top Installer Device Identifier Shelf Expiration Date Model / Serial / Lot Breast Implants Breast Implants Bilateral: Breast Procedures Procedure Name Priority Date/Time Associated Diagnosis Comments TISSUE EXAM Routine 10/14/2024 8:31 AM EDT Menorrhagia with irregular cycle TH AN ENDOTRACHEAL(NO CHARGE) Routine 10/14/2024 7:59 AM EDT IL LAP SURG W TOTAL HYSTERECTOMY FOR UTERUS 250G OR LESS W REM TUBE & OVARY 10/14/2024 7:29 AM EDT Menorrhagia with irregular cycle Endometriosis POC PREGANCY, URINE SCREENING Routine 10/14/2024 6:19 AM EDT CBC WITH AUTO DIFFERENTIAL Routine 10/14/2024 6:15 AM EDT Menorrhagia with irregular cycle CBC AND DIFFERENTIAL Routine 10/14/2024 6:15 AM EDT Menorrhagia with irregular cycle TYPE AND SCREEN Routine 10/14/2024 6:15 AM EDT HM HPV Routine 05/06/2023 HEPATITIS C SCREENING Routine 01/26/2022 HIV SCREENING Routine 01/26/2022 from Last 3 Months or Most Recently Relevant to Health Maintenance Results * Tissue exam (10/14/2024 8:31 AM EDT) Final Diagnosis Uterus, cervix, and bilateral fallopian tubes: Adenomyosis Inactive endometrium Uterine serosal endosalpingiosis Focal chronic endocervicitis Fallopian tubes with changes of prior ligation - No atypia or neoplasm identified 10/15/2024 1:48 PM EDT [facility]) [facility] Gross Description A. Endometrium, Uterus, cervix and bilateral fallopian tubes: Labeled uterus, c Endo . Received in formalin is a symmetrical uterine corpus and three separately received portions of fallopian tube with a combined weight of 139 grams. The uterine corpus measures 6.5 x 5.5 x 4.9 cm. The serosa is pink to red. The lateral borders and paracervical tissues are cauterized. The attached cervix measures 4.0 cm in length and 4.0 cm in width. The ectocervical mucosa is white to pink and glistening with a central, patent, 1.1 cm in greatest diameter patent, fish-mouth os. The specimen is opened. The endocervical canal has a walters lining. The cut surfaces of the cervix are white and rubbery. The uterine tissue exudes copious amounts of blood. The triangular in shape endometrial cavity measures 4.0 cm in length and up to 2.2 cm in width. The anterior lower uterine segment is slightly indented and focally hemorrhagic. The endometrium is pink to red and measures approximately 0.1 cm. The myometrium is walters-pink to red and focally hemorrhagic at the junction of the myometrium and serosa. Nodules are absent. The myometrium measures approximately 2.0 cm. The separately received fimbriated fallopian tube segments measure 2.5 cm, 3.6 cm and 7.0 cm in length. The tubes are arbitrarily designated as #1, #2 and #3 (smallest to largest respectively). Segments #1 and #3 are fimbriated. Segment #3 is focally discontinuous. Segment #2 has one smooth and and a cauterized end. Each has a mcclellan to purple serosa with multiple paratubal cysts measuring up to 0.3 cm in greatest diameter. On sectioning the fallopian tube lumina range from pinpoint to dilated, up to 0.[address] sections are submitted in nine cassettes. 1-anterior cervix, one piece 2-posterior cervix, one piece 3-anterior lower uterine segment, one piece 3-[id number]-dkjycsyqo anterior endomyometrium, one piece 5-6 bisected posterior endomyometrium, one piece each 7-fallopian tube #1 including a cross-section and the corresponding longitudinally bisected fimbriated end, three pieces 6-hitff-zepglvk of fallopian tube #2, two pieces 0-gppsq-bhglgkkm of fallopian tube #3 and the corresponding longitudinally bisected fimbriated end, four pieces TS 10/15/2024 1:48 PM EDT [facility]) [facility] Disclaimer Unless otherwise specified, all tissue is 10% NB formalin fixed and paraffin embedded. 10/15/2024 1:[address] [facility] Tissue Endometrial structure / Unknown 10/14/2024 8:31 AM EDT 10/14/2024 10:38 AM EDT Thu Gonzales MD LAB PATHOLOGY ORDERABLES Fi nal Result [facility] [address] [place] [address], [place] [phone] * TH AN ENDOTRACHEAL(NO CHARGE) (10/14/2024 7:59 AM EDT) Wanda Ingram CRNA - 10/14/2024 7:59 AM EDT Wanda Toth CRNA 10/14/2024 8:00 AM General Information and Staff Patient location during procedure: OR Resident/APPLIED MATHEMATICIAN: Wanda Toth CRNA Performed: resident/APPLIED MATHEMATICIAN/CAA Performed by: Wanda Toth CRNA Authorized by: Tai Petersen MD Intubation Additional Comments DL x1 by EMT student without view of VC; DL x2 by APPLIED MATHEMATICIAN with grade I view of VC; ETT passed through VC atraumatically; + BLBS +ETCO2; dentition and oral mucosa unchanged from pre op condition Airway not difficult Urgency: elective Final Airway Details Successful airway: ETT Successful intubation technique: direct laryngoscopy Facilitating devices/methods: intubating stylet Blade: Mai Blade size: #3 ETT size (mm): 7.0 Cormack-Lehane Classification: grade I - full view of glottis Placement verified by: chest auscultation and capnometry Measured from: lips ETT to lips (cm): 20 Number of attempts at approach: 1Final airway type: endotracheal airway Indications and Patient Condition Indications for airway management: anesthesia and airway protection Spontaneous ventilation: present Sedation level: Yes Preoxygenated: yes Soft Tissue Damage: No Dentition Unchanged: Yes Patient position: sniffing MILS maintained throughout Mask difficulty assessment: 2 - vent by mask + OA or adjuvant +/- NMBA Tai Petersen MD ANESTHESIA ORDERABLES Final Re sult * POC , urine NO CHARGE screening manually resulted (10/14/2024 6:19 AM EDT) Pathologist [facility] HCG, Ur POC Negative Negative POC hCG Int QC Pass? Yes Yes Urine Urine specimen obtained by clean catch procedure / Unknown 10/14/2024 6:19 AM EDT Thu Gonzales MD POINT OF CARE TEST ENTER/ED IT ORDERABLES Final Result * (ABNORMAL) CBC auto differential (10/14/2024 6:15 AM EDT) [facility] WBC 8.3 4.8 - 10.8 K/mcL LAB HEMETOLOGY METHOD [facility] RBC 4.80 3.80 - 4.80 M/mcL LAB HEMETOLOGY METHOD 10/14/2024 6:56 AM [facility] Hemoglobin 12.7 11.5 - 16.0 g/dL LAB HEMETOLOGY METHOD 10/14/2024 6:56 AM [facility] Hematocrit 38.7 35.0 - 47.0 % LAB HEMETOLOGY METHOD 10/14/2024 6:56 AM [facility] MCV 81.3 79.0 - 98.0 FL LAB HEMETOLOGY METHOD 10/14/2024 6:56 AM [facility] MCH 26.7(L) 27.0 - 32.0 pcg LAB HEMETOLOGY METHOD 10/14/2024 6:56 AM [facility] MCHC 32.8 32.0 - 37.0 g/dL LAB HEMETOLOGY METHOD 10/14/2024 6:56 AM [facility] RDW 13.2 11.0 - 15.0 % LAB HEMETOLOGY METHOD 10/14/2024 6:56 AM [facility] Platelets 288 130 - 400 K/mcL LAB HEMETOLOGY METHOD 10/14/2024 6:[address] [facility] MPV 10.9 7.0 - 11.0 FL LAB HEMETOLOGY METHOD 10/14/2024 6:56 AM [facility] NRBC 0.0 <1.0 % LAB HEMETOLOGY METHOD 10/14/2024 6:56 AM [facility] NRBC Absolute 0.00 <0.10 K/mcL LAB HEMETOLOGY METHOD 10/14/2024 6:56 AM [facility] Neutrophils Relative 58.3 % LAB HEMETOLOGY METHOD 10/14/2024 6:56 AM [facility] Lymphocytes Relative 31.0 % LAB HEMETOLOGY METHOD 10/14/2024 6:56 AM [facility] Monocytes Relative 8.2 % LAB HEMETOLOGY METHOD 10/14/2024 6:56 AM [facility] Eosinophils Relative 1.3 % LAB HEMETOLOGY METHOD 10/14/2024 6:56 AM [facility] Basophils Relative 0.7 % LAB HEMETOLOGY METHOD 10/14/2024 6:56 AM [facility] Immature Granulocytes Relative 0.5 % LAB HEMETOLOGY METHOD 10/14/2024 6:56 AM [facility] Neutrophils Absolute 4.84 1.50 - 7.00 K/mcL LAB HEMETOLOGY METHOD 10/14/2024 6:56 AM [facility] Lymphocytes Absolute 2.58 1.00 - 5.00 K/mcL LAB HEMETOLOGY METHOD 10/14/2024 6:56 AM [facility] Monocytes Absolute 0.68 0.20 - 1.00 K/mcL LAB HEMETOLOGY METHOD 10/14/2024 6:56 AM [facility] Eosinophils Absolute 0.11 0.00 - 0.50 K/mcL LAB HEMETOLOGY METHOD 10/14/2024 6:[address] [facility] Basophils Absolute 0.06 0.00 - 0.20 K/[facility] HEMETOLOGY METHOD 10/14/2024 6:[address] [facility] Immature Granulocytes Absolute 0.04(H) 0.00 - 0.03 /[facility] LAB HEMETOLOGY METHOD 10/14/2024 6:[address] [facility] Blood Venous blood specimen / Unknown Venipuncture / Unknown 10/14/2024 6:15 AM EDT 10/14/2024 6:32 AM EDT us Thu Gonzales MD LAB BLOOD ORDERABLES Final Result Performing Organization Address [facility]/ZIP Co de Phone Number [facility] [address] [place] [address], [place] [phone] * Type and screen (10/14/2024 6:15 AM EDT) Pathologist [facility] ABO Group A 10/19/2024 9:[address] [facility] Rh Type Positive 10/19/2024 9:[address] [facility] Antibody Screen Negative 10/19/2024 9:[address] [facility] Blood Venous blood specimen / Unknown Venipuncture / Unknown 10/14/2024 6:15 AM EDT 10/14/2024 6:31 AM EDT us Thu Gonzales MD LAB BLOOD BANK TEST ORDERAB LES Final Result [facility] [address] [place] [address], [place] [phone] * Cervical Cancer Screening: HPV (05/06/2023) Cervical Cancer Screening: HPV Abstracted, negative Historical Provider HEALTH MAINTENANCE Final Result * HIV Screening (01/26/2022) HIV Screening Abstracted Historical Provider HEALTH MAINTENANCE Final Result * Hepatitis C Screening (01/26/2022) Hepatitis C Screening Abstracted [facility] Provider HEALTH MAINTENANCE Final Result from Last 3 Months or Most Recently Relevant to Health Maintenance Insurance MEDICAID - [place] Advance Directives * Full Code - Default (Latest Code Status on File) Date Activated Date Inactivated Comments 10/14/2024 6:06 AM 10/14/2024 2:53 PM This is orde r is used when code status has not been discussed with the patient, or code status is otherwise unknown/unconfirmed To update the patient's code status, place a code status order. Do not modify or discontinue any currently active code status orders. Care Teams Ortho/Prosthetic Aide Relationship Specialty Start Date End Date Mabel Ortiz MD [address] [place] [id number] PCP - General 06/21/16
== END 2025-01-04 09:44 | disposition home or self-care (01) ==
LOC: HO.MAMMO 09:43
PROVIDERS: PCP Student in an Organized Health Care Education/Training Program; Visit Provider Student in an Organized Health Care Education/Training Program
DX: Z12.31 Encounter for screening mammogram for malignant neoplasm of breast (principal)
CPT/HCPCS: 77063; 77067

== ENCOUNTER → 2025-01-04 10:30 | Outpatient (BNV) | payer MEDICAID, SELFPAY | PROVIDERS: PCP Student in an Organized Health Care Education/Training Program; Visit Provider Radiology Body Imaging | DX: Z12.31 Encounter for screening mammogram for malignant neoplasm of breast (principal) | CPT/HCPCS: 77063; 77067 ==